=== PATIENT | female | born 1960 | race Caucasian/White ===

== ENCOUNTER → 2016-07-18 | Outpatient (REF) | payer OTHER ==
[~2016-07-18] MED LIST: /ESOM40CA PO; COUMADIN PO; METOPROLOL TARTRATE; METOPROLOL TARTRATE PO; PRAV20TA2 OR; TOPI50TA PO; TRAM50TA2 OR; ULTR300T OR; ULTR300T PO
[2016-07-18 13:04] LABS: VITAMIN B12 LEVEL 297 PG/ML (247-911)
== END ==
LOC: M LAB REF 12:03
DX: M25.512 Pain in left shoulder (principal); R41.3 Other amnesia

== ENCOUNTER 2017-08-07 15:36 | Emergency (ER) | payer OTHER ==
[2017-08-07] MEDS: ASPIRIN 81 MG CHEW TABLET PO (16:12)
[2017-08-07 16:28] LABS: BASO # 0.1 10^3/uL (0.0-0.2); BASO % 1.3 % (0.0-1.0); EOS # 0.2 10^3/uL (0.0-0.50); EOS % 2.9 % (0.0-3.0); HEMATOCRIT 40.6 % (36.0-47.0); HEMOGLOBIN 13.5 g/dl (12.0-16.0); IMMATURE GRANULOCYTE % 0.3 % (0-3.0); LYMPH % 31.2 % (24.0-44.0); MEAN CORPUSCULAR HEMOGLOBIN 30.4 pg (27.0-33.0); MEAN CORPUSCULAR HGB CONC 33.3 g/dl (32.0-36.5); MEAN CORPUSCULAR VOLUME 91.4 fl (80.0-96.0); MONO # 0.6 10^3/uL (0.0-0.8); MONO % 9.4 % (0.0-5.0); NEUTROPHILS # 3.4 10^3/uL (1.8-7.7); NEUTROPHILS % 54.9 % (36.0-66.0); PLATELET COUNT, AUTOMATED 274 10^3/uL (150-450); RED BLOOD COUNT 4.44 10^6/uL (4.00-5.40); RED CELL DISTRIBUTION WIDTH 12.6 % (11.5-14.5); WHITE BLOOD COUNT 6.3 10^3/uL (4.0-10.0)
[2017-08-07 16:49] LABS: ALBUMIN 3.9 GM/DL (3.2-5.2); ALBUMIN/GLOBULIN RATIO 1.22 (1.00-1.93); ALKALINE PHOSPHATASE 78 U/L (45-117); ALT/SGPT 17 U/L (12-78); ANION GAP 9 MEQ/L (8-16); AST/SGOT 16 U/L (7-37); BILIRUBIN,DIRECT 0.1 MG/DL (0.0-0.2); BILIRUBIN,TOTAL 0.5 MG/DL (0.2-1.0); BLOOD UREA NITROGEN 22 MG/DL (7-18); CALCIUM LEVEL 8.6 MG/DL (8.5-10.1); CARBON DIOXIDE LEVEL 26 MEQ/L (21-32); CHLORIDE LEVEL 105 MEQ/L (98-107); CPK CREATINE PHOSPHOKINASE 113 U/L (26-192); CREATININE FOR GFR 1.31 MG/DL (0.55-1.30); GLOMERULAR FILTRATION RATE 44.6 (>51); GLUCOSE, FASTING 104 MG/DL (70-100); LIPASE 129 U/L (73-393); MB/CK RELATIVE INDEX 0.88 (< OR =4); SODIUM LEVEL 140 MEQ/L (136-145); TOTAL PROTEIN 7.1 GM/DL (6.4-8.2); TROPONIN I < 0.02 NG/ML (< 0.10)
[2017-08-07 17:23] LABS: D-DIMER QUANT < 270.0 ng/ml (<500)
[2017-08-07 19:31] LABS: CPK CREATINE PHOSPHOKINASE 105 U/L (26-192); TROPONIN I < 0.02 NG/ML (< 0.10)
[2017-08-07 19:44] LABS: MB/CK RELATIVE INDEX 0.95 (< OR =4)
[2017-08-07] MEDS: predniSONE 20 MG TAB PO (20:55)
== END 2017-08-07 21:01 | disposition home or self-care (01) ==
LOC: M ED 15:36
DX: R07.9 Chest pain, unspecified (principal); I10 Essential (primary) hypertension; B15.9 Hepatitis A without hepatic coma; Z86.711 Personal history of pulmonary embolism; Z79.899 Other long term (current) drug therapy; Z79.01 Long term (current) use of anticoagulants; Z79.891 Long term (current) use of opiate analgesic; Z88.2 Allergy status to sulfonamides
CPT/HCPCS: 71045

== ENCOUNTER → 2018-07-09 | Outpatient (CLI) | payer OTHER ==
[~2018-07-09] MED LIST changes: +GABA-845 PO; +PRED20TA PO
[2018-07-09 15:55] LABS: INR 2.33
== END ==
LOC: M LAB 14:43
PROVIDERS: ATTEND Internal Medicine Hematology & Oncology
DX: I26.99 Other pulmonary embolism without acute cor pulmonale (principal); D50.9 Iron deficiency anemia, unspecified

== ENCOUNTER → 2018-07-23 | Outpatient (CLI) | payer OTHER ==
[2018-07-23 13:40] LABS: INR 1.58; PROTHROMBIN TIME 19.2 SECONDS (12.1-14.4)
== END ==
LOC: M LAB 13:05
PROVIDERS: ATTEND Internal Medicine Hematology & Oncology
DX: I26.99 Other pulmonary embolism without acute cor pulmonale (principal); D50.9 Iron deficiency anemia, unspecified; Z79.01 Long term (current) use of anticoagulants

== ENCOUNTER 2018-10-31 09:43 | Emergency (ER) | payer OTHER ==
[~2018-10-31] VITALS: Ht 175.3 cm; Wt 95.9 kg
[~2018-10-31 09:43] MED LIST changes: -/ESOM40CA PO; +NEXI1CAP3 PO
[2018-10-31] MEDS ORDERED: NS 1,000 ML IV ONE (10:45)
[2018-10-31] MEDS ORDERED: ONDANSETRON 4MG/2ML VIAL (J2405) IV ONE (10:45)
[2018-10-31 11:10] LABS: BASO % 0.6 % (0.0-1.0); EOS # 0.1 10^3/uL (0.0-0.50); EOS % 2.3 % (0.0-3.0); HEMATOCRIT 43.6 % (36.0-47.0); HEMOGLOBIN 14.2 g/dl (12.0-15.5); LYMPH # 1.5 10^3/uL (1.5-4.5); LYMPH % 28.7 % (24.0-44.0); MEAN CORPUSCULAR HEMOGLOBIN 30.6 pg (27.0-33.0); MEAN CORPUSCULAR HGB CONC 32.6 g/dl (32.0-36.5); MONO # 0.6 10^3/uL (0.0-0.8); MONO % 11.9 % (0.0-5.0); NEUTROPHILS # 2.9 10^3/uL (1.8-7.7); NEUTROPHILS % 56.1 % (36.0-66.0); PLATELET COUNT, AUTOMATED 260 10^3/uL (150-450); RED BLOOD COUNT 4.64 10^6/uL (4.00-5.40); WHITE BLOOD COUNT 5.2 10^3/uL (4.0-10.0)
[2018-10-31 11:19] LABS: INR 1.85; PROTHROMBIN TIME 21.7 SECONDS (12.1-14.4)
[2018-10-31 11:20] LABS: PARTIAL THROMBOPLASTIN TIME 36.5 SECONDS (25.4-37.6)
[2018-10-31 11:44] LABS: ALBUMIN 3.5 GM/DL (3.2-5.2); BILIRUBIN,DIRECT 0.1 MG/DL (0.0-0.2); BILIRUBIN,TOTAL 0.6 MG/DL (0.2-1.0); CALCIUM LEVEL 8.5 MG/DL (8.5-10.1); CREATININE FOR GFR 1.05 MG/DL (0.55-1.30); GLOMERULAR FILTRATION RATE 57.1 (>51); POTASSIUM SERUM 3.7 MEQ/L (3.5-5.1); TOTAL PROTEIN 7.3 GM/DL (6.4-8.2)
[2018-10-31] MEDS ORDERED: ISOVUE-370 76% 100ML VIAL (Q9967) As Ordered ONE (11:47)
--- NOTE | 2018-10-31 12:15 | REP ---
Clinical: Abdominal pain. Technique: Axial contrast enhanced images from the lung bases to the pubic symphysis using 100 ml Isovue 370 intravenous contrast material with coronal and sagittal re-formations. Comparison: 07/18/2010. Findings: Lung bases are clear. Visualized heart and pericardium normal. Fatty infiltration to the liver noted without focal hepatic lesion. Spleen, pancreas, gallbladder, bilateral adrenal glands and left kidney are normal. The patient is status post right nephrectomy. The enteric system is without obstruction or acute inflammatory process. Normal terminal ileum and appendix identified in the right lower quadrant. Scattered colonic diverticula noted without acute diverticulitis. Pelvis demonstrates normal bladder and age-appropriate uterus/adnexa. No pelvic fluid or ascites. No free air. No significant adenopathy. Atherosclerotic changes to the aorta without aneurysm or dissection. Musculoskeletal structures intact. Impression: Evidence of prior right nephrectomy. No acute abdominopelvic pathology appreciated. Scattered colonic diverticula without acute diverticulitis. No ascites, focal inflammatory stranding, or adenopathy. Electronically Signed by Speedy Melgoza MD 10/31/2018 12:06 P
[2018-10-31] MEDS ORDERED: ONDA4TAB6 PO (12:16)
[2018-10-31] MEDS ORDERED: CIPR-249 PO (12:16)
[2018-10-31 12:42] VITALS: BP 141/82
== END 2018-10-31 12:56 | disposition home or self-care (01) ==
LOC: M ED 09:43
DX: N30.90 Cystitis, unspecified without hematuria (principal); E86.0 Dehydration; K76.0 Fatty (change of) liver, not elsewhere classified; R19.7 Diarrhea, unspecified; R00.2 Palpitations; I10 Essential (primary) hypertension; I25.2 Old myocardial infarction; G43.909 Migraine, unspecified, not intractable, without status migrainosus; G54.0 Brachial plexus disorders; F32.9 Major depressive disorder, single episode, unspecified; Z88.2 Allergy status to sulfonamides; Z79.899 Other long term (current) drug therapy; Z79.01 Long term (current) use of anticoagulants
CPT/HCPCS: 74177; 80048; 80076; 81001; 85025; 85610; 85730; 87086; 96374; 99284; J2405; Q9967

== ENCOUNTER → 2018-12-20 | Outpatient (CLI) | payer OTHER ==
[~2018-12-20] MED LIST changes: +CIPR-249 PO; +ONDA4TAB6 PO
[2018-12-20 12:46] LABS: INR 2.28; PROTHROMBIN TIME 24.9 SECONDS (11.8-14.0)
== END ==
LOC: M LAB 12:04
PROVIDERS: ATTEND Internal Medicine Hematology & Oncology
DX: Z79.01 Long term (current) use of anticoagulants (principal)

== ENCOUNTER 2019-04-16 13:34 | Emergency (ER) | payer OTHER ==
[~2019-04-16] VITALS: Ht 175.3 cm; Wt 90.9 kg
--- NOTE | 2019-04-16 14:29 | REP ---
Duplex extremity venous ultrasound: Left lower extremity. History: Left knee pain. History of DVTs. Findings: The deep veins are anechoic and fully compressible from the groin to the popliteal fossa in the left lower extremity. Color flow imaging is homogeneous. Spectral Doppler interrogation demonstrates intact respiratory variation in flow and normal manual augmentation of flow. There is no evidence of deep vein thrombosis. There is a 5.4 x 2.8 x 2.5 cm hypoechoic area in the posteromedial popliteal soft tissues on the left consistent with a Barrientos's cyst containing viscus and/or proteinaceous content. Impression: 5.4 cm presumed Barrientos's cyst in the left posteromedial popliteal soft tissues. Otherwise negative left lower extremity duplex venous ultrasound. No evidence of deep vein thrombosis. Electronically Signed by Anton Hernandez MD 04/16/2019 02:20 P
[2019-04-16] MEDS ORDERED: OXYC1TAB23 PO (15:29)
[2019-04-16] MEDS ORDERED: PRED20TA PO (16:01)
[2019-04-16 16:13] VITALS: BP 157/94
== END 2019-04-16 16:17 | disposition home or self-care (01) ==
LOC: M ED 13:34
DX: M71.22 Synovial cyst of popliteal space [Baker], left knee (principal); G43.909 Migraine, unspecified, not intractable, without status migrainosus; I10 Essential (primary) hypertension; I25.2 Old myocardial infarction; F32.9 Major depressive disorder, single episode, unspecified; Z86.711 Personal history of pulmonary embolism; Z88.2 Allergy status to sulfonamides; Z79.01 Long term (current) use of anticoagulants; Z79.899 Other long term (current) drug therapy

== ENCOUNTER → 2019-04-21 | Outpatient (REF) | payer OTHER ==
[~2019-04-21] MED LIST changes: +ESOM1CAP5 PO; +GABA-1171 PO; +OXYC1TAB23 PO; +PERC5TAB12 PO; +WARF-23 PO; +WARF4TAB52 PO; +[UNRECOGNIZED DRUG - CODE] PO
[2019-04-21 15:51] LABS: BASO % 0.2 % (0.0-1.0); EOS % 0.2 % (0.0-3.0); HEMATOCRIT 43.5 % (36.0-47.0); HEMOGLOBIN 13.7 g/dl (12.0-15.5); LYMPH # 2.5 10^3/uL (1.5-5.0); LYMPH % 23.1 % (24.0-44.0); MEAN CORPUSCULAR HEMOGLOBIN 29.8 pg (27.0-33.0); MEAN CORPUSCULAR HGB CONC 31.5 g/dl (32.0-36.5); MEAN CORPUSCULAR VOLUME 94.8 fl (80.0-96.0); MONO # 1.1 10^3/uL (0.0-0.8); MONO % 9.8 % (0.0-5.0); NEUTROPHILS # 7.2 10^3/uL (1.5-8.5); NEUTROPHILS % 66.3 % (36.0-66.0); PLATELET COUNT, AUTOMATED 365 10^3/uL (150-450); RED BLOOD COUNT 4.59 10^6/uL (4.00-5.40); WHITE BLOOD COUNT 10.8 10^3/uL (4.0-10.0)
[2019-04-21 16:04] LABS: INR 3.49; PROTHROMBIN TIME 35.1 SECONDS (11.8-14.0)
[2019-04-21 18:30] LABS: ERYTHROCYTE SEDIMENTATION RATE 41 mm/hr (0-30)
== END ==
LOC: M LABDRAW1 11:48
PROVIDERS: ATTEND Orthopaedic Surgery
DX: M25.562 Pain in left knee (principal)

== ENCOUNTER 2019-04-22 21:08 | Inpatient (IN) | payer OTHER ==
[~2019-04-22] VITALS: Ht 175.3 cm; Wt 90.0 kg
[~2019-04-22 21:08] MED LIST changes: -ESOM1CAP5 PO; -GABA-1171 PO; -PERC5TAB12 PO; -WARF-23 PO; -WARF4TAB52 PO; -[UNRECOGNIZED DRUG - CODE] PO
[2019-04-22] MEDS ORDERED: ONDANSETRON 4MG/2ML VIAL (J2405) IV ONE (22:30)
[2019-04-22] MEDS ORDERED: LORazepam 2 MG/ML VIAL (J2060) IV ONE (22:30)
[2019-04-22] MEDS: MORPHINE 4 MG/ML 1ML VIAL/SYRINGE (J2270) IV PRN ×2 (22:40→23:33)
[2019-04-23] MEDS ORDERED: PERC5TAB12 PO (01:49)
[2019-04-23] MEDS ORDERED: WARF-23 PO (01:49)
[2019-04-23] MEDS ORDERED: ESOM1CAP5 PO (01:49)
[2019-04-23] MEDS ORDERED: WARF4TAB52 PO (01:49)
[2019-04-23] MEDS ORDERED: [UNRECOGNIZED DRUG - CODE] PO (01:49)
[2019-04-23] MEDS ORDERED: GABA-1171 PO (01:49)
--- NOTE | 2019-04-23 02:41 | HPEPDOC ---
[facility] Medical History & Physical Date of Admission Apr 23, 2019 Date of Service: Apr 23, 2019 Attending Physician: FRANCESCA RIVERS MD History and Physical CHIEF COMPLAINT: Barrientos's cyst and supratherapeutic INR HISTORY OF PRESENT ILLNESS: Maria A Tay is a 58-year-old female with history of questionable hypercoagulopathy who presents with 2 weeks left posterior knee pain and known Bakers cyst. The patient is on chronic Coumadin for history of pulmonary embolism and is status post multiple IVC filters and removals. She first presented to the ER on 04/16/2019 for this pain where of vascular ultrasound was performed and a 5.4 cm presumed Barrientos's cyst was found. She was given prednisone and an amara wrap and told to follow-up with orthopedic surgery in the outpatient setting. Today, she reported to the orthopedic surgeon's office for drainage of her Barrientos's cyst but this was unable to be performed due to supratherapeutic INR at 3.49. She has been holding her Coumadin for the past 2 days. She is in 9 out of 10 pain in her left knee and leg at this time. She reports the pain from her Barrientos's cyst first occurred almost 2 weeks ago and has been worsening ever since. The patient has requested admission overnight for pain control as she is unable to ambulate at home. REVIEW OF SYSTEMS: CONSTITUTIONAL: No recent fevers or chills HEENT: denies vision changes, no sinus problems, denies any trouble swallowing CARDIOVASCULAR: no palpitations RESPIRATORY: Denies any shortness of breath GENITOURINARY: No dysuria MUSCULOSKELETAL: Reports pain behind her left knee radiating down to her feet. GASTROINTESTINAL: Denies abdominal pain, no nausea/vomiting/diarrhea SKIN: No new rashes or lesions NEUROLOGICAL: No loss of sensation PSYCHIATRIC: Reports normal mood, no delusions or hallucinations ENDOCRINE: No hot/cold intolerance HEMATOLOGIC/LYMPHATIC: No easy bruising, no lumps/bumps ALLERGIC/IMMUNOLOGIC: No sinus symptoms PAST MEDICAL HISTORY: 1. History of postoperative pulmonary embolism, currently on Coumadin 2. History of obstructing nephrolithiasis requiring stent placement 3. History of Takotsubo's Syndrome 4. Migraines. 5. Crandall's esophagus 6. Hypercoagulable syndrome? 7. History of GI bleed 8. History of large abdominal wall hematoma, postoperative PAST SURGICAL HISTORY: 1. Right nephrectomy 2. Tonsillectomy 3. D&C 4. Tubal ligation 5. Endometrial ablation 6. IVC filter insertion and removal 2 7. Left oophorectomy and lysis of adhesions SOCIAL HISTORY: Denies smoking, occasional alcohol. Denies any other illicit drugs FAMILY HISTORY: Strong family history of VTE ALLERGIES: Please see below. HOME MEDICATIONS: Please see below. PHYSICAL EXAMINATION: VITAL SIGNS: Please see below. GENERAL APPEARANCE: Laying in bed, appears stated age, very sedated, acutely in pain, but cooperative HEENT: EOMI, PERRLA, neck is supple with no thyromegaly or lymphadenopathy RESPIRATORY: Lungs are clear to auscultation bilaterally with no adventitious breath sounds appreciated CARDIOVASCULAR: no JVD, RRR,no murmurs/rubs/gallops ABDOMEN: Soft, nontender to palpation in all four quadrants, no masses/organomegaly EXTREMITIES: A 4-5 cm cyst can be palpated on the left posterior knee. There is pain to deep palpation down her left leg including her calf and anterior rodríguez. There is a healed scar on her left ankle. There is no clubbing, cyanosis or edema NEUROLOGICAL: No obvious focal deficits PSYCHIATRIC: Patient is anxious and tearful Skin: No rashes or ulcers. LN: No significant cervical or inguinal lymphadenopathy LABORATORY DATA: See below. IMAGING: Vascular US from 04/16/19 Impression: 5.4 cm presumed Barrientos's cyst in the left posteromedial popliteal soft tissues. Otherwise negative left lower extremity duplex venous ultrasound. No evidence of deep vein thrombosis. MICROBIOLOGY: Please see below. ASSESSMENT: This is a 58-year-old female with history of pulmonary embolism on chronic Coumadin, who presents with Barrientos's cyst of left knee, also found to hav e supratherapeutic INR, which precludes her from drainage at this time. She will be admitted for pain control. PLAN: 1. Supratherapeutic INR: -Patient's INR found to be 3.49 on lab draw 04/21/2019 -Will recheck INR in a.m. -Continue holding Coumadin -Will give one time dose 5mg Vitamin K -Will get records from rotary operator Dr. Agosto in [place] regarding Coumadin use. 2. Acute pain secondary to Barrientos's cyst -Morphine 3 mg every 3 hours when necessary ordered -Will continue home gabapentin -Zofran when necessary for nausea 3. Barrientos's cyst: -Consider orthopedic surgery consult in a.m. 4. Hypertension -Patient's blood pressure 135/75 -Likely secondary to pain. If it does not improve, we'll treat with amlodipine 5. GERD secondary to Crandall's esophagus: -Continue home omeprazole DISPO: Will likely stay less than 2 midnight's stay. The day time team may consider consulting Ortho to aspirate the cyst if her INR has normalized vs out pt f/u Vital Signs Vital Signs Date Time Temp Pulse Resp B/P (MAP) Pulse Ox O2 Delivery O2 Flow Rate FiO2 04/23/19 01:05 72 20 135/75 (95) 98 Room Air 04/22/19 21:31 97.1 Home Medications Scheduled Esomeprazole Magnesium (Esomeprazole Magnesium) 40 Mg Capsule.dr, 40 MG PO DAILY Gabapentin (Gabapentin) 100 Mg Capsule, 100 MG PO QHS Tramadol HCl (Tramadol HCl ER) 300 Mg Tab.er.24h, 300 MG PO DAILY Warfarin Sodium (Warfarin Sodium) 1 Mg Tablet, 1 MG PO DAILY TAKES WITH 5MG FOR 6 MG TOTAL Warfarin Sodium (Warfarin Sodium) 5 Mg Tablet, 5 MG PO DAILY TAKES WITH 1MG FOR 6MG TOTAL Scheduled PRN Oxycodone HCl/Acetaminophen (Percocet 5-325 mg Tablet) 1 Each Tablet, 1 TAB PO Q4H PRN for PAIN Allergies Coded Allergies: Sulfa (Sulfonamide Antibiotics) (Verified Allergy, Intermediate, rash, hives " very sick" , 10/31/18) A-FIB/CHADSVASC A-FIB History Current/History of A-Fib/PAF?: No GME ATTESTATION GME ATTESTATION My faculty preceptor for this patient encounter was physically present during the encounter and was fully available. All aspects of the patient interview, examination, medical decision making process, and medical care plan development were reviewed and approved by the faculty preceptor. The faculty preceptor is aware and concurs with the plan as stated in the body of this note and will attest to such by his/her cosignature. ATTENDING NOTE I examined , discussed the case with and agree with the plan as documented above. ADAN FARIA MD Apr 23, 2019 02:41 FRANCESCA RIVERS MD Apr 23, 2019 07:05
[2019-04-23] MEDS: MORPHINE 4 MG/ML 1ML VIAL/SYRINGE (J2270) IV PRN ×3 (03:59→09:47)
[2019-04-23 04:15] VITALS: BP 155/99
[2019-04-23] MEDS ORDERED: PHYTONADIONE 5 MG TAB PO ONE (04:15)
[2019-04-23] MEDS: ONDANSETRON 4MG/2ML VIAL (J2405) IV PRN ×2 (04:44→14:01)
[2019-04-23 05:10] LABS: INR 3.49; PROTHROMBIN TIME 35.1 SECONDS (11.8-14.0)
[2019-04-23 05:32] LABS: ALBUMIN 3.1 GM/DL (3.2-5.2); BILIRUBIN,TOTAL 0.5 MG/DL (0.2-1.0); CALCIUM LEVEL 8.9 MG/DL (8.5-10.1); CREATININE FOR GFR 1.1 MG/DL (0.55-1.30); GLOMERULAR FILTRATION RATE 54.1 (>51); POTASSIUM SERUM 4.6 MEQ/L (3.5-5.1); TOTAL PROTEIN 7.1 GM/DL (6.4-8.2)
[2019-04-23 06:00] VITALS: BP 138/85
[2019-04-23] MEDS: NORCO, ANEXSIA 5/325MG TABLET (HYDROcodone/ACETAMINOPHEN) PO PRN ×2 (08:17→22:18)
[2019-04-23] MEDS: OMEPRAZOLE 20 MG CAP PO SCH (08:17)
[2019-04-23] MEDS ORDERED: HYDROMORPHONE HCL 0.5 MG/ 0.5 ML SYRINGE (J1170 PER 1) IV PRN (13:00)
[2019-04-23 13:30] VITALS: BP 164/98
[2019-04-23] MEDS ORDERED: HYDROMORPHONE HCL 0.5 MG/ 0.5 ML SYRINGE (J1170 PER 1) IV ONE (14:00)
[2019-04-23] MEDS ORDERED: ACETAMINOPHEN *IV* 1,000 MG in IV 1 EA IV SCH (15:30)
[2019-04-23] MEDS: HYDROMORPHONE HCL 0.5 MG/ 0.5 ML SYRINGE (J1170 PER 1) IV PRN ×7 (15:39→23:35)
[2019-04-23] MEDS: ACETAMINOPHEN 500 MG TAB PO SCH (16:44)
[2019-04-23] MEDS: MIRALAX *UNIT DOSE* 17GM PACKET PO PRN (16:53)
[2019-04-23] MEDS ORDERED: KETOROLAC 30 MG/ML VIAL (J1885) IV ONE (19:00)
[2019-04-23] MEDS ORDERED: GABAPENTIN 100 MG CAP PO SCH (21:00)
[2019-04-23 22:00] VITALS: BP 113/72
[2019-04-24] MEDS ORDERED: traMADol ER 100MG TABLET (ULTRAM ER) PO ONE (00:15)
[2019-04-24] MEDS: ACETAMINOPHEN 500 MG TAB PO SCH ×4 (00:29→17:12)
[2019-04-24] MEDS: HYDROMORPHONE HCL 0.5 MG/ 0.5 ML SYRINGE (J1170 PER 1) IV PRN ×2 (05:58→13:11)
[2019-04-24 06:16] VITALS: BP 110/72
[2019-04-24 06:17] LABS: HEMOGLOBIN 12.2 g/dl (12.0-15.5); MEAN CORPUSCULAR HEMOGLOBIN 29.8 pg (27.0-33.0); MEAN CORPUSCULAR HGB CONC 31.3 g/dl (32.0-36.5); MEAN CORPUSCULAR VOLUME 95.4 fl (80.0-96.0); PLATELET COUNT, AUTOMATED 283 10^3/uL (150-450); RED BLOOD COUNT 4.09 10^6/uL (4.00-5.40); WHITE BLOOD COUNT 7.6 10^3/uL (4.0-10.0)
[2019-04-24 06:25] LABS: INR 1.76; PROTHROMBIN TIME 20.3 SECONDS (11.8-14.0)
[2019-04-24 06:34] LABS: ALBUMIN 2.8 GM/DL (3.2-5.2); BILIRUBIN,TOTAL 1.2 MG/DL (0.2-1.0); CALCIUM LEVEL 8.9 MG/DL (8.5-10.1); CREATININE FOR GFR 1.28 MG/DL (0.55-1.30); GLOMERULAR FILTRATION RATE 45.4 (>51); MAGNESIUM LEVEL 2.1 MG/DL (1.8-2.4); PHOSPHORUS LEVEL 3.4 MG/DL (2.5-4.9); POTASSIUM SERUM 4.2 MEQ/L (3.5-5.1); TOTAL PROTEIN 6.9 GM/DL (6.4-8.2)
[2019-04-24] MEDS ORDERED: traMADol ER 100MG TABLET (ULTRAM ER) PO SCH (09:00)
[2019-04-24] MEDS ORDERED: LIDOCAINE 1% MDV 20ML VIAL SC ONE (09:00)
[2019-04-24] MEDS: OMEPRAZOLE 20 MG CAP PO SCH (09:19)
[2019-04-24] MEDS: MIRALAX *UNIT DOSE* 17GM PACKET PO PRN ×2 (09:27→22:05)
--- NOTE | 2019-04-24 09:50 | IPN ---
DATE: 04/24/2019 The patient complains of 15/10 pain at the left popliteal fossa, unable to sleep last night despite tramadol 300 mg daily, gabapentin 100 nightly, Dilaudid 0.5 every 1 hour as needed for severe pain, and [place] 1 tablet every 4 hours. VITAL SIGNS: Temperature 97.7, pulse 77, respiratory rate 13, blood pressure 110/72, 91% on room air. Generally awake, alert, oriented times three, answering questions appropriately. No respiratory distress. Speaks in full sentences. Lungs are clear to auscultation. No wheezing, rales or rhonchi. Heart: S1, S2, sinus rhythm. Abdomen soft, nontender, nondistended. Positive bowel sounds. Extremities: A 4 cm cyst in the left popliteal fossa. No cyanosis, clubbing or any pitting edema. LABORATORY DATA: INR 1.76. White count 7.6, hemoglobin 12, hematocrit 39, platelet count 283. Sodium 135, potassium 4.2 chloride 98, bicarbonate 31, BUN 26, creatinine 1.2, and glucose of 107, total bilirubin 1.2. Venous ultrasound: 5.4 cm presumed Barrientos's cyst left posteromedial popliteal soft tissue. Negative left lower extremity venous ultrasound. No evidence of deep venous thrombosis (DVT) 04/16/2019. ASSESSMENT AND PLAN: 58-year-old female on chronic warfarin for pulmonary embolism (PE), inferior vena cava (IVC) filter removal, questionable hypercoagulability presents with pain in the left popliteal fossa found to have a 5.4 cm presumed Barrientos's cyst on 04/16/2019. Was seen at the orthopedic group for drainage of Barrientos's cyst but was supratherapeutic with INR of 3.49 and was sent to the hospital for admission. Current INR is 1.76. ACTIVE ISSUES: 1. Barrientos's cyst left popliteal fossa to be drained by Dr. Tiffanie Franco, Orthopedics Surgery. Patient's INR is currently 1.76. Holding her warfarin. 2. Elevated INR due to warfarin. She was given a one time dose of vitamin K. Warfarin is on hold. She has a account manager education, Dr. Terry, in [place], who manages her Coumadin level. 3. History of PE. IVC filter removal. On chronic warfarin. No DVT on 04/16/2019. Ultrasound of the lower extremity. Resume warfarin once aspiration has been done. 4. Reflux due to Crandall's. On Prilosec. 5. Hypertension. On Norvasc. MTDD
[2019-04-24 11:27] LABS: SOURCE, BODY FLUID LFT KNEE
[2019-04-24 11:28] LABS: SYNOVIAL FLUID COLOR RED (YELLOW)
[2019-04-24 11:32] LABS: CRYSTALS, BODY FLUID NONE SEEN (NONE SEEN); SOURCE, BODY FLUID CRYSTALS LFT KNEE
[2019-04-24] MEDS: NORCO, ANEXSIA 5/325MG TABLET (HYDROcodone/ACETAMINOPHEN) PO PRN (13:10)
[2019-04-24] MEDS ORDERED: DOCUSATE SODIUM 100 MG CAP PO ONE (14:00)
[2019-04-24] MEDS ORDERED: diphenhydrAMINE INJ 50MG/ML VIAL (J1200) IV PRN (14:30)
[2019-04-24] MEDS ORDERED: NALBUPHINE HCL 10 MG/ML AMP (J2300) IV PRN (14:30)
[2019-04-24] MEDS ORDERED: NALOXONE INJ 0.4 MG/1 ML VIAL (J2310) IV PRN (14:30)
[2019-04-24] MEDS ORDERED: ONDANSETRON 4MG/2ML VIAL (J2405) IV PRN (14:30)
[2019-04-24] MEDS ORDERED: EPIDURAL/PCA KEYS XX PRN (14:30)
--- NOTE | 2019-04-24 14:38 | IPNPDOC ---
Date Seen The patient was seen on 04/24/19. Progress Note Left Barrientos's cyst/ popliteal fossa pain s/p aspiration 04/24/19 -attempted to contact pain management clinic for assistance with pain control, but only deals with chronic pain. -pain mgt recommended continuing pt's chronic meds: tramadol 300 mg daily, increasing gabapentin up to 100 mg tid, and for acute pain, minimizing opiate use to less than 5 days with as needed morphine due to risk of tolerance, dependence, and increased sedation. VS, [facility]&O[facility] Vital Signs/I&O Vital Signs Date Time Temp Pulse Resp B/P (MAP) Pulse Ox O2 Delivery O2 Flow Rate FiO2 04/24/19 13:40 18 Room Air 04/24/19 06:16 97.7 77 110/72 (85) 91 I&O- Last 24 Hours up to 6 AM 04/24/19 06:00 Intake Total 840 ml Output Total 700 ml Balance 140 ml Laboratory Data 24H LABS Laboratory Tests 2 04/24/19 05:55: Nucleated Red Blood Cells % (auto) 0.0, Prothrombin Time 20.3H, Prothromb Time International Ratio 1.76, Anion Gap 6L, Glomerular Filtration Rate 45.4L, Calcium Level 8.9, Phosphorus Level 3.4, Magnesium Level 2.1, Total Bilirubin 1.2#H, Aspartate Amino Transf (AST/SGOT) 14, Alanine Aminotransferase (ALT/SGPT) 18, Alkaline Phosphatase 77, Total Protein 6.9, Albumin 2.8L, Albumin/Globulin Ratio 0.68L 04/24/19 11:09: Body Fluid WBC (Auto) , Body Fluid RBC (Auto) , Body Fluid Mononuclear Cells % Auto , Fluid Polymorphonuclear Cell % Auto , Body Fluid Crystals NONE SEEN, Body Fluid Crystal Source LFT KNEE, Synovial Fluid Source LFT KNEE, Synovial Fluid Color RED, Synovial Fluid Appearance CLOTTED CBC/BMP Laboratory Tests 04/24/19 05:55 Microbiology Microbiology 04/24/19 Gram Stain - Final, Resulted 04/24/19 Body Fluid Culture, Resulted Pending KAREN ACOSTA MD Apr 24, 2019 14:37
[2019-04-24 14:52] VITALS: BP 108/67
[2019-04-24] MEDS: NS 1,000 ML IV SCH (15:52)
[2019-04-24] MEDS: MORPHINE 1MG/ML IN 0.9% NACL 100ML IV BAG IV PRN (15:52)
[2019-04-24] MEDS: GABAPENTIN 100 MG CAP PO SCH ×2 (16:03→21:41)
[2019-04-24] MEDS: ENOXAPARIN 100MG/1ML SYRINGE (J1650) SC SCH (17:12)
[2019-04-24] MEDS: WARFARIN SOD 3 MG TAB PO SCH (17:12)
[2019-04-24] MEDS ORDERED: DOCUSATE SODIUM 100 MG CAP PO SCH (21:00)
[2019-04-24] MEDS: DOCUSATE SODIUM 100 MG CAP PO SCH (21:41)
[2019-04-24 22:00] VITALS: BP 110/62
[2019-04-24] MEDS: MOM 30ML SUSPENSION UDC PO PRN (22:05)
[2019-04-24] MEDS: SENOKOT S TAB PO PRN (22:05)
[2019-04-25] MEDS: ACETAMINOPHEN 500 MG TAB PO SCH ×3 (00:12→11:48)
[2019-04-25] MEDS: ENOXAPARIN 100MG/1ML SYRINGE (J1650) SC SCH ×2 (05:05→16:36)
[2019-04-25 06:29] VITALS: BP 116/60
[2019-04-25 06:55] LABS: INR 1.56; PROTHROMBIN TIME 18.4 SECONDS (11.8-14.0)
[2019-04-25] MEDS: OMEPRAZOLE 20 MG CAP PO SCH (09:40)
[2019-04-25] MEDS: DOCUSATE SODIUM 100 MG CAP PO SCH ×2 (09:40→20:26)
[2019-04-25] MEDS: GABAPENTIN 100 MG CAP PO SCH ×3 (09:40→20:26)
[2019-04-25] MEDS: traMADol ER 100MG TABLET (ULTRAM ER) PO SCH (09:41)
[2019-04-25] MEDS: NS 1,000 ML IV SCH (14:28)
[2019-04-25 16:00] VITALS: BP 138/72
[2019-04-25] MEDS: WARFARIN SOD 3 MG TAB PO SCH (16:36)
[2019-04-25] MEDS: MORPHINE 1MG/ML IN 0.9% NACL 100ML IV BAG IV PRN (16:37)
[2019-04-25] MEDS: MOM 30ML SUSPENSION UDC PO PRN (20:25)
[2019-04-25] MEDS: MIRALAX *UNIT DOSE* 17GM PACKET PO PRN (20:25)
[2019-04-25] MEDS: SENOKOT S TAB PO PRN (20:26)
[2019-04-25 22:36] VITALS: BP 110/64
[2019-04-26] VITALS (7 sets, daily range): BP systolic 113–130; BP diastolic 66–77
[2019-04-26] MEDS: ENOXAPARIN 100MG/1ML SYRINGE (J1650) SC SCH ×2 (05:01→16:20)
[2019-04-26 07:36] LABS: INR 1.6; PROTHROMBIN TIME 18.8 SECONDS (11.8-14.0)
[2019-04-26] MEDS ORDERED: MIRALAX *UNIT DOSE* 17GM PACKET PO PRN (08:00)
--- NOTE | 2019-04-26 08:14 | REP ---
Left knee series: Four views. History: Infection. Findings: Four views of the left knee show a normal fabella posterolaterally. There is distension in the suprapatellar bursa region consistent with a large joint effusion. No bony erosive changes seen. Bones joints soft tissues are otherwise unremarkable. Impression: Findings consistent with large joint effusion. No acute bony abnormality. Electronically Signed by Anton Hernandez MD 04/26/2019 08:05 A
[2019-04-26] MEDS: MORPHINE 15 MG SA TAB PO SCH (09:59)
[2019-04-26] MEDS: OMEPRAZOLE 20 MG CAP PO SCH (09:59)
[2019-04-26] MEDS: GABAPENTIN 100 MG CAP PO SCH ×2 (09:59→16:25)
[2019-04-26] MEDS: DOCUSATE SODIUM 100 MG CAP PO SCH (09:59)
[2019-04-26] MEDS: traMADol ER 100MG TABLET (ULTRAM ER) PO SCH (09:59)
--- NOTE | 2019-04-26 09:59 | IPN ---
DATE OF SERVICE: 04/25/2019 Patient complains of severe 15/10 pain at the left popliteal fossa status post drainage yesterday and aspiration. Patient was unable to sleep due to pain and decided not to move around. She only used her morphine minimally, afraid that she will have dependence on it. "I don't want to take too many things that I can get addicted to." She was encouraged to ambulate today to use her morphine to control her pain in order to increase her ambulation and prevent deconditioning. Patient also complains of constipation when she takes opioids and has been placed on Colace and as needed bowel regimen. PHYSICAL EXAM: Temperature 96.6, pulse 79, respiratory rate 20, blood pressure 116/69, 96% on room air. Generally, patient is awake, alert, oriented times three, answering questions appropriately. No confusion. No jugular venous distention (JVD). No thyromegaly. Lungs are clear to auscultation. No wheezing, rales, or rhonchi. Heart: S1, S2, sinus rhythm. Abdomen is soft, nontender, nondistended. Positive bowel sounds. Extremities: Left popliteal fossa is very tender. She is able to flex and extend, but complains of 15/10 pain. No cyanosis or clubbing. Has trace edema with varicosities. 04/24/2019 laboratory data have been reviewed. Gram stain of the joint fluid remains with no organisms seen. ASSESSMENT AND PLAN: This is a 58-year-old female with history of deep venous thrombosis (DVT) pulmonary embolus (PE) on chronic warfarin, inferior vena cava (IVC) filter with removal, questionable hypercoagulability, presented with intractable pain in the left popliteal fossa, found to have a 5.4 cm presumed Barrientos cyst on 04/16/2019, and was seen at the orthopedic group and admitted to hospitalist's service for drainage of Barrientos cyst. Her INR was elevated at 3.49. ISSUES NOW: 1. Barrientos cyst, left popliteal fossa, drained by Dr. Tiffanie Franco, with INR 1.76 at that time. She is resumed back on her Lovenox and warfarin. Awaiting culture and sensitivity results. 2. History of pulmonary embolus (PE)/deep venous thrombosis (DVT). On chronic warfarin. Currently on bridge therapy with Lovenox. 3. Reflux disease due to Crandall esophagus. On Prilosec. 4. Hypertension. On Norvasc. DISPOSITION: Since the patient is not well controlled, she is maintained on intravenous (IV) morphine, which we will probably discontinue this in the morning once we can calculate how much dosage she requires to be comfortable enough to ambulate and work with physical therapy.
[2019-04-26] MEDS: MORPHINE 30 MG TAB **MSIR PO PRN ×2 (12:24→16:25)
--- NOTE | 2019-04-26 13:00 | IPNPDOC ---
Date Seen The patient was seen on 04/26/19. Progress Note ADDENDUM TO PROGRESS NOTE: MEDICAL CLEARANCE FOR SURGERY: Pt's warfarin and lovenox have been held. She denies any chest pain, pressure, tightness, shortness of breath, palpitations, lightheadedness, or dizziness, and has no prior history of CAD, [place], or CHF. She is medically optimized to proceed to surgery for washout of left popliteal fossa morel's cyst s/p bedside drainage on 04/25/19. VS, [facility] Vital Signs/I&O Vital Signs Date Time Temp Pulse Resp B/P (MAP) Pulse Ox O2 Delivery O2 Flow Rate FiO2 04/26/19 12:24 18 04/26/19 10:00 98.3 74 128/68 (88) 96 Room Air l I&O- Last 24 Hours up to 6 AM 04/26/19 05:59 Intake Total 2090 ml Output Total 0 ml Balance 2090 ml Laboratory Data 24H LABS Laboratory Tests 2 04/26/19 06:56: Prothrombin Time 18.8H, Prothromb Time International Ratio 1.60 Microbiology Microbiology 04/24/19 Gram Stain - Final, Complete 04/24/19 Body Fluid Culture - Final, Complete Bacillus Sp., Not Anthracis KAREN ACOSTA MD Apr 26, 2019 13:00
[2019-04-26] MEDS ORDERED: GLUCAGON FOR INJ 1 MG VIAL (J1610) SC PRN (13:30)
[2019-04-26] MEDS ORDERED: DEXTROSE 50% 50 ML SYRINGE IV PRN (13:30)
[2019-04-26] MEDS ORDERED: GLUCOSE 4 GM CHEW TABLET PO PRN (13:30)
[2019-04-26] MEDS: KCL 40MEQ IN D5/0.45NS 1000ML 1,000 ML IV SCH (13:39)
--- NOTE | 2019-04-26 14:31 | IPN ---
DATE: 04/26/2019 Overnight, patient complained of severe pain at the left popliteal fossa, rating it at 15/10 even at rest, describes as very sharp, stays in that area, worse when she tries to move. No fever or chills overnight. Microbiology, grew out bacillus species, not anthracis. No organisms are seen. Majority of bacillus species have little or no pathogenic potential. Common environmental contaminant and rarely associated with disease in humans. Despite morphine drip, patient continues to have swelling and pain at the area. Her Lovenox was last given around 4 o'clock in the morning, and her warfarin has been held. She is due to proceed for a washout of the Barrientos cyst in the left popliteal fossa. Patient otherwise denies any chest pain, pressure, tightness, shortness of breath, palpitations, lightheadedness, dizziness, no history of coronary artery disease, myocardial infarction, congestive heart failure, or renal failure. Blood pressure has been stable at 120-130 systolic. PHYSICAL EXAM: Temperature 98.3, pulse 74, respiratory 16, blood pressure 128/68, 96% on room air. Generally, awake, alert, oriented to person, place, and time, answering questions appropriately. Lungs are clear to auscultation. No wheezing, rales, or rhonchi. Heart: S1, S2, sinus rhythm. Abdomen is soft, nontender, nondistended. Positive bowel sounds. Extremities: Pain in left lower extremity in the popliteal fossa status post drainage. No cyanosis or clubbing. Patient has positive edema with varicosities bilateral lower extremities. 04/24/2019 laboratory data have been reviewed. INR this morning is 1.6. Microbiology joint fluid, 04/24/2019: Bacillus species, not anthracis. Knee x-ray, 04/26/2019: Large joint effusion. No acute bony abnormality. ASSESSMENT AND PLAN: This is a 58-year-old female with history of deep venous thrombosis (DVT), pulmonary embolus (PE), inferior vena cava (IVC) filter with removal, questionable hypercoagulability on chronic warfarin, presented with intractable pain in the left popliteal fossa, found to have a 5.4 cm Barrientos cyst, 04/16/2019, was seen at the orthopedic group and referred to the emergency room (ER) for admission. Patient underwent drainage at the bedside on 04/25/2019 with body fluid showing bacillus species. Patient is preparing for washout in the operating room later this evening after 12 hours off of Lovenox. Her warfarin has been held, and current INR is 1.6. 1. Medical clearance. Patient is medically optimized to proceed to the operating room. Her Lovenox and warfarin have been held. She has no complaints of any acute ischemic symptoms. No prior history of coronary artery disease (CAD), myocardial infarction ([place]), or congestive heart failure. Her ambulation is limited by pain in the left popliteal fossa and chronic DVT and PE in the past. 2. Large joint effusion, left popliteal fossa with presumed Barrientos cyst. The patient is to go for washout in the operating room later this evening. Pain control with morphine intravenous (IV) and oral as needed. Per pain management, acute pain can be also treated with increased gabapentin 100 three times a day from her baseline 100 nightly, and continue her Ultram extended release at 300 mg daily. Patient has not exhibited any adverse effects and does not appear to have been sedated by the changes in dosage. 3. History of nephrectomy. For unknown reasons, patient had intractable bleeding in one of her kidneys and subsequently underwent nephrectomy. Avoid nonsteroidal anti-inflammatory drugs (NSAIDs), avoid Toradol, and avoid dehydration. Currently on D5 half normal saline with fingersticks every 6 hours. Awaiting the operating room (OR) for washout. 4. DVT prophylaxis held due plan to go to the operating room later this evening.
[2019-04-26] MEDS ORDERED: WARFARIN SOD 4 MG TAB PO ONE (17:00)
[2019-04-26] MEDS ORDERED: ceFAZolin 1GM INJ (J0690 PER 500MG) As Ordered ONE (20:30)
[2019-04-26] MEDS ORDERED: ceFAZolin 2 GM/D5W 50 ML IV BAG (J0690 PER 500MG) As Ordered ONE (20:44)
[2019-04-26] MEDS ORDERED: MIDAZOLAM INJ 2 MG/2 ML VIAL (J2250) As Ordered ONE (20:46)
[2019-04-26] MEDS ORDERED: PROPOFOL 200 MG/20 ML VIAL As Ordered ONE (20:46)
[2019-04-26] MEDS ORDERED: fentaNYL 100 MCG/2 ML INJECTION (J3010) As Ordered ONE ×3 (20:46→22:20)
[2019-04-26] MEDS ORDERED: LIDOCAINE 2% INJ 100 MG/5 ML SDV (FOR ANES.) As Ordered ONE (20:46)
[2019-04-26] MEDS ORDERED: dexameTHASONE 4 MG/ML 1ML VIAL (J1100) As Ordered ONE (20:46)
[2019-04-26] MEDS ORDERED: ONDANSETRON 4MG/2ML VIAL (J2405) As Ordered ONE (20:46)
[2019-04-26] MEDS ORDERED: METOCLOPRAMIDE INJ 10MG/2ML VIAL (J2765) As Ordered ONE (20:46)
[2019-04-26] MEDS ORDERED: LABETALOL HCL 100 MG/20 ML VIAL As Ordered ONE (21:19)
[2019-04-26] MEDS ORDERED: HYDROmorphone HCL 2 MG/ML 1ML VIAL (J1170) As Ordered ONE (21:21)
[2019-04-26] MEDS ORDERED: ACETAMINOPHEN 1000MG 100ML IV BTL (OFIRMEV) (J0131 PER 10MG) As Ordered ONE (21:26)
[2019-04-26] MEDS ORDERED: ROPIvacaine 0.5% 30 ML INJECTION (J2795 PER 1MG) As Ordered ONE (21:48)
[2019-04-26] MEDS: fentaNYL 100 MCG/2 ML INJECTION (J3010) IV PRN ×4 (22:20→22:35)
[2019-04-26] MEDS ORDERED: MORPHINE 10 MG/ML 1ML VIAL (J2270) As Ordered ONE (22:20)
[2019-04-26] MEDS ORDERED: LR 1,000 ML IV SCH (22:30)
[2019-04-26] MEDS ORDERED: ONDANSETRON 4MG/2ML VIAL (J2405) IV PRN (22:30)
[2019-04-26] MEDS: MORPHINE 10 MG/ML 1ML VIAL (J2270) IV PRN ×2 (22:40→22:45)
[2019-04-27] VITALS (9 sets, daily range): BP systolic 103–140; BP diastolic 66–85
[2019-04-27] MEDS: KCL 40MEQ IN D5/0.45NS 1000ML 1,000 ML IV SCH (00:01)
[2019-04-27] MEDS: GABAPENTIN 100 MG CAP PO SCH ×4 (00:01→21:16)
[2019-04-27] MEDS: DOCUSATE SODIUM 100 MG CAP PO SCH ×3 (00:01→21:17)
[2019-04-27] MEDS ORDERED: LR 1,000 ML IV SCH (01:00)
[2019-04-27] MEDS: MORPHINE 15 MG SA TAB PO SCH ×3 (01:12→21:17)
[2019-04-27] MEDS: ceFAZolin SOD 2 GM in IV 1 EA IV SCH ×3 (03:29→18:42)
[2019-04-27] MEDS: ENOXAPARIN 100MG/1ML SYRINGE (J1650) SC SCH ×2 (05:14→17:08)
[2019-04-27 07:01] LABS: HEMOGLOBIN 10.9 g/dl (12.0-15.5); MEAN CORPUSCULAR HEMOGLOBIN 29.9 pg (27.0-33.0); MEAN CORPUSCULAR HGB CONC 31.1 g/dl (32.0-36.5); MEAN CORPUSCULAR VOLUME 95.9 fl (80.0-96.0); PLATELET COUNT, AUTOMATED 287 10^3/uL (150-450); RED BLOOD COUNT 3.65 10^6/uL (4.00-5.40); WHITE BLOOD COUNT 6.9 10^3/uL (4.0-10.0)
[2019-04-27 07:11] LABS: INR 1.55; PROTHROMBIN TIME 18.3 SECONDS (11.8-14.0)
[2019-04-27 07:13] LABS: PARTIAL THROMBOPLASTIN TIME 51.9 SECONDS (25.0-38.4)
[2019-04-27] MEDS: traMADol ER 100MG TABLET (ULTRAM ER) PO SCH (08:44)
[2019-04-27] MEDS: OMEPRAZOLE 20 MG CAP PO SCH (08:44)
--- NOTE | 2019-04-27 09:35 | CR ---
DATE OF CONSULTATION: 04/26/2019 This is a 58-year-old woman who has had a couple weeks history of left knee pain and swelling. She has been followed primarily by Dr. Franco from an orthopedic standpoint and had an aspiration done, I believe, a couple of days ago. This was reportedly a hemarthrosis. There was a positive culture that came through and Dr. Weathers had asked me to proceed with the arthroscopy this evening as he had a family emergency. I spoke with the patient and obtained the history and exam. She essentially has a large effusion, has some warmth of her left knee and keeps it flexed at about 80 degrees and allows very little flexion extension beyond that. She also has had a low grade temperature of just over 100 today. She wished to go ahead with an arthroscopy. She is hoping to get some symptomatic relief. There is certainly a possibility that there is an infection in the knee as well. However, I think even decompressing this presumed hemarthrosis, irrigating it out, will likely give her some significant symptomatic relief. She understands the nature of this, the alternatives of just observation, aspiration. The risks I discussed with her including bleeding, infection, damage to nerves, vessels, persistent pain, stiffness, recurrent effusion or hemarthrosis recurrent infection. She understands that I will likely put a drain in. She has been consented here in the recovery room. I also discussed this with her . She did have an MRI scan through our office a few days ago that showed likely hemarthrosis and Barrientos's cyst. JUAN
[2019-04-27] MEDS: MORPHINE 30 MG TAB **MSIR PO PRN ×2 (11:34→16:04)
[2019-04-27] MEDS: MORPHINE 2 MG/ML 1ML VIAL (J2270) IV PRN ×2 (14:14→18:42)
--- NOTE | 2019-04-27 20:07 | IPN ---
DATE: 04/27/2019 The patient had one shot of the left popliteal fossa due to Barrientos's cyst that was drained. Findings were bloody discharge. The patient was placed on perioperative cefazolin. Previous culture grew out Bacillus, not anthracis. Afebrile overnight. No complaints of chills. Pain is improved, currently 6 out of 10 at the bedside on morphine IR as needed and morphine IV for breakthrough pain and controlled release morphine 15 mg twice a day. The patient is afraid of constipation and has not had a bowel movement, currently with a bowel regimen with as needed MiraLAX, Colace, Senokot. PHYSICAL EXAMINATION: VITAL SIGNS: Temperature 98.3, pulse 68, respiratory rate 20, blood pressure 110/68, 94% on 1 liter nasal cannula. GENERAL: Awake, alert, oriented times three. Able to speak in full sentences. LUNGS: Clear to auscultation. No wheezing, rales or rhonchi. HEART: S1, S2. Sinus rhythm. No murmurs, rubs or gallops. ABDOMEN: Soft, nontender, nondistended. Positive bowel sounds. No rebound, guarding. No hepatosplenomegaly. No abdominal bruits. EXTREMITIES: Left popliteal fossa has no fluctuance, no swelling. She has chronic varicosities and positive pitting edema of 1+ in bilateral lower extremities. No cyanosis or clubbing. LABORATORY DATA: INR 1.55, white count 6.7, hemoglobin 10, hematocrit 35, platelet count 287. Sodium 135, potassium 4.2, chloride 98, bicarbonate 31, BUN 26, creatinine 1.28, glucose of 107, total bilirubin 1.2, magnesium 2.1, AST 14, ALT 18, alkaline phosphatase 77, albumin 2.8. MICROBIOLOGY: Joint fluid from 04/24/2019 Bacillus species, not anthracis. Wound culture of the left knee on 04/26/2019 still pending. X-ray on 04/26/2019 showed large joint effusion, no acute abnormality. ASSESSMENT AND PLAN: This is a 58-year-old female with a history of questionable hypercoagulable state with history of deep vein thrombosis (DVT), pulmonary embolism, and IVC filter removal, who presented from the orthopedic group with questionable Barrientos's cyst in the popliteal fossa on the left and was sent to the hospital for admission and pain control. 1. Large joint effusion left knee, presumed Barrientos's cyst. Had drainage by Dr. Franco at the bedside on 04/24/2019 with culture being Bacillus, not anthracis. She went for a washout in the operating room on 04/26/2019, currently on perioperative cefazolin. No white count. No fever. The patient is currently on morphine IV as needed, morphine IR for pain control and morphine controlled release twice a day 15 mg. She has had a prior nephrectomy and cannot take any nonsteroidal antiinflammatory drugs (NSAIDs). 2. History of nephrectomy. No definitive diagnosis. Per the patient and the patient's , the patient had ongoing bleeding at that time, which could not be contained. Therefore, avoid NSAIDs, Toradol, ibuprofen, Naprosyn, Aleve. 3. History of hypercoagulable state, deep vein thrombosis (DVT) and pulmonary embolus. Resume back on Lovenox and warfarin today. Target INR 2 to 3. 4. Chronic pain. On gabapentin and tramadol. 5. Reflux. On Prilosec. MTDD
[2019-04-27] MEDS: ACETAMINOPHEN 650MG ER TAB (TYLENOL ARTHRITIS) PO PRN (23:09)
[2019-04-28] MEDS: MORPHINE 30 MG TAB **MSIR PO PRN ×2 (01:09→06:20)
[2019-04-28 02:00] VITALS: BP 120/69
[2019-04-28 06:00] VITALS: BP 117/71
[2019-04-28] MEDS: ENOXAPARIN 100MG/1ML SYRINGE (J1650) SC SCH (06:21)
[2019-04-28 07:40] LABS: INR 1.36; PROTHROMBIN TIME 16.5 SECONDS (11.8-14.0)
[2019-04-28 07:41] LABS: PARTIAL THROMBOPLASTIN TIME 44.1 SECONDS (25.0-38.4)
[2019-04-28] MEDS: GABAPENTIN 100 MG CAP PO SCH ×3 (08:52→20:51)
[2019-04-28] MEDS: OMEPRAZOLE 20 MG CAP PO SCH (08:52)
[2019-04-28] MEDS: MORPHINE 15 MG SA TAB PO SCH (08:52)
[2019-04-28] MEDS: DOCUSATE SODIUM 100 MG CAP PO SCH ×2 (08:52→20:51)
[2019-04-28] MEDS: traMADol ER 100MG TABLET (ULTRAM ER) PO SCH (08:53)
[2019-04-28 10:00] VITALS: BP 118/72
[2019-04-28] MEDS: MORPHINE 2 MG/ML 1ML VIAL (J2270) IV PRN ×4 (10:12→21:52)
[2019-04-28] MEDS ORDERED: NALOXONE INJ 0.4 MG/1 ML VIAL (J2310) IV PRN (12:15)
--- NOTE | 2019-04-28 12:44 | RO ---
DATE OF PROCEDURE: 04/26/2019 PREOPERATIVE DIAGNOSES: Left knee hemarthrosis, possible infection, significant pain. POSTOPERATIVE DIAGNOSES: Left knee hemarthrosis, possible infection, significant pain. PROCEDURE: Left knee operative arthroscopy, debridement, evacuation hemarthrosis, cultures. Using a total of 6 liters of antibiotic irrigation. SURGEON: Reji Mello MD HEALTH SERVICES DIRECTOR: ANESTHESIA: General. ESTIMATED BLOOD LOSS (EBL): 50. COMPLICATIONS: None. INDICATIONS: A 58-year-old woman who has had persistent knee effusion on the left that turned out to be a likely hemarthrosis based on aspiration and MRI scan. She also had a positive culture. Due to significant knee pain, warmth, some redness, positive culture, we recommended arthroscopic debridement. She wished to go ahead with this. She understood the nature of this, the risks of bleeding, infection, damage to nerves, vessels, persistent pain, blood clots, persistent infection, need for further surgery, among others. among other procedure. DESCRIPTION OF PROCEDURE: The patient was taken to the operating room, placed in supine position after general anesthesia was induced. Left lower extremity was prepped and draped. The tourniquet was inflated after time-out was performed. I then created inferomedial and inferolateral portals per routine. Identified the patellofemoral joint. She did have significant hemarthrosis, which I suctioned out as much as I could just through the trocar and then irrigated. I irrigated through both gutters, medial and lateral compartments, and patellofemoral joint using a 4.0 shaver and two 3-liter bags of antibiotic solution. There was a moderate amount of arthritic change throughout the knee. There was no evidence of meniscus tear. Once I was satisfied with the debridement and irrigation, I then removed the instrumentation, placed a15 J-Vac drain to a bulb to the superolateral aspect the knee and closed the portals using 4-0 nylon suture. I also placed a suture to keep the drain in place. Sterile dressing was applied. Tourniquet had been deflated. She was taken to the recovery room in stable condition. There were no known complications. The plan will be routine postoperative. The antibiotic selection can be done either by the hospitalist or perhaps infectious disease. Of note is that I did make an attempt to try to manually decompress the Barrientos cyst by putting pressure on it during the arthroscopy. JUAN
[2019-04-28] MEDS ORDERED: MORPHINE 15 MG SA TAB PO ONE (13:00)
[2019-04-28 14:00] VITALS: BP 139/84
[2019-04-28 14:35] LABS: HEMATOCRIT 34.3 % (36.0-47.0); HEMOGLOBIN 10.8 g/dl (12.0-15.5); MEAN CORPUSCULAR HEMOGLOBIN 30.1 pg (27.0-33.0); MEAN CORPUSCULAR HGB CONC 31.5 g/dl (32.0-36.5); MEAN CORPUSCULAR VOLUME 95.5 fl (80.0-96.0); PLATELET COUNT, AUTOMATED 317 10^3/uL (150-450); RED BLOOD COUNT 3.59 10^6/uL (4.00-5.40); WHITE BLOOD COUNT 8.6 10^3/uL (4.0-10.0)
--- NOTE | 2019-04-28 14:42 | IPN ---
DATE: 04/28/2019 The patient complains of severe pain on the popliteal fossa with bloody drainage since she has been on Lovenox. The left knee continues to appear swollen, status post washout in the operating room. Drainage by HARRIS drain overnight was 60 mL. The patient stated that the morphine immediate release 15 mg every 4 hours was insufficient, along with IV morphine for breakthrough pain, rating the pain at 11 out of 10 when it was worsened with standing up and ambulating to the bathroom. PHYSICAL EXAMINATION: VITAL SIGNS: Temperature 97.7, pulse 73, respiratory rate 18, blood pressure 118/72, 96% on room air. GENERAL: Awake, alert, oriented times three. Answering questions appropriately. No jaundice. No use of respiratory accessory muscles. NECK: No cervical lymphadenopathy or thyromegaly. LUNGS: Clear to auscultation. No wheezing, rales or rhonchi. HEART: S1, S2. Sinus rhythm. No murmurs, rubs or gallops. ABDOMEN: Soft, nontender, nondistended. Positive bowel sounds. EXTREMITIES: Positive chronic edema with bloody HARRIS drain on the left knee. LABORATORY DATA: Pending. ASSESSMENT AND PLAN: This is a 58-year-old female with a history of recurrent pulmonary embolisms, deep vein thrombosis (DVT), IVC filter placement on chronic warfarin, presented from the orthopedic group after being found to have a large effusion with questionable Barrientos's cyst, was found to have hemearthrosis, bedside drainage was Bacillus. The patient underwent washout in the operating room and now with HARRIS drain of about 70 mL over the past 48 hours. IMPRESSION: 1. Large joint effusion left knee, presumed Barrientos's cyst, appears to be hemorrhagic. The patient was drained at the bedside by Dr. Franco on 04/24/2019, cultures showing Bacillus, not anthracis. The patient underwent washout in the operating room on 04/26/2019. Has been on cefazolin. No white count or fever. Currently on IV morphine for breakthrough pain. Controlled release morphine has been increased to 30 mg twice a day and continue 15 mg immediate release morphine every 4 hours as needed for pain. The patient hs had a prior nephrectomy and cannot take any nonsteroidal antiinflammatory drugs (NSAIDs). Defer to surgery regarding the drainage management. At this time, due to ongoing blood loss via the drain, the patient's Lovenox has been temporarily held today and warfarin has not been resumed. 2. History of nephrectomy due to prior history of uncontrollable bleeding. Void nephrotoxins, NSAIDs, Toradol, ibuprofen, Naprosyn, Aleve. Renally dose all medications. 3. History of hypercoagulable state, deep vein thrombosis (DVT) and pulmonary embolus in the past, IVC filter placement with removal. THe patient's Lovenox will be held today and warfarin will not be started due to ongoing bleeding through the HARRIS drain, about 70 mL over the past 48 hours. 4. Chronic pain. On gabapentin, which has been increased to three times a day and tramadol at night. 5. Reflux. On chronic Prilosec. MTDD
[2019-04-28 15:06] LABS: CALCIUM LEVEL 8.3 MG/DL (8.5-10.1); CREATININE FOR GFR 1.04 MG/DL (0.55-1.30); GLOMERULAR FILTRATION RATE 57.7 (>51); POTASSIUM SERUM 3.9 MEQ/L (3.5-5.1)
[2019-04-28] MEDS ORDERED: WARFARIN SOD 3 MG TAB PO ONE (17:00)
[2019-04-28 18:00] VITALS: BP 136/86
[2019-04-28 20:47] VITALS: BP 140/86
[2019-04-28] MEDS: MORPHINE 30 MG SA TAB PO SCH (20:51)
[2019-04-29] MEDS: MORPHINE 2 MG/ML 1ML VIAL (J2270) IV PRN ×2 (01:00→11:20)
[2019-04-29 03:45] VITALS: BP 139/85
[2019-04-29] MEDS: ONDANSETRON 4MG/2ML VIAL (J2405) IV PRN (06:27)
[2019-04-29 06:28] VITALS: BP 133/79
[2019-04-29] MEDS: MORPHINE 30 MG TAB **MSIR PO PRN ×3 (06:28→17:12)
[2019-04-29 06:44] LABS: INR 1.15; PROTHROMBIN TIME 14.4 SECONDS (11.8-14.0)
[2019-04-29 06:45] LABS: PARTIAL THROMBOPLASTIN TIME 31.8 SECONDS (25.0-38.4)
--- NOTE | 2019-04-29 08:29 | CR ---
DATE OF CONSULTATION: 04/28/2019 Asked to consult by orthopedic surgery for evaluation of left knee hematoma with a culture positive for bacillus. HISTORY OF PRESENT ILLNESS: Maria A is a 58-year-old female with a history of deep venous thrombosis (DVT) and pulmonary embolism who developed left knee pain around April 11 when she was volunteering in the voting process. The patient felt like she had hyperextended her knee. She developed severe acute pain that continued until April 16 when the pain became intolerant and she went to the emergency room. A vascular ultrasound was done which showed a 5.4 cm Barrientos's cyst. She was given a followup at orthopedic surgery and was supposed to have the knee aspirated but she was to told her Coumadin as her INR was supratherapeutic. The patient stated her pain got much worse and she presented to the hospital on April 23 complaining of excruciating pain. She had a low grade fever. She had significant swelling of the knee. The patient was admitted for pain management and knee aspiration. The knee was aspirated on the but there was significant blood, it clot, there was no cell count that could be performed. There was no crystals in the knee and the culture had Bacillus species, a few on culture. The pain was not manageable. She was taken to the operating room by Dr. Mello on 04/26, he did a knee arthroscopy, debridement, evacuation of hemarthrosis and new cultures were sent. He used 6 liters of antibiotic irrigation. He described the operative report as having significant hemarthrosis, moderate amount of arthritic changes throughout the knee, no evidence of meniscus tear and he left the drain in place. She received three doses of cefazolin perioperatively. The patient had a T-max of 100.1, but that was postoperatively. Currently she complains of some nausea and constipation from narcotics. PAST MEDICAL HISTORY: Is significant for pulmonary embolism on Coumadin, deep venous thromboses (DVTs), history of obstructing nephrolithiasis, takotsubo syndrome, migraines, Crandall's esophagus, hypercoagulable syndrome, history of gastrointestinal (GI) bleeding, large abdominal wall hematoma after she had a cardiac catheterization, IVC filter that was removed and replaced. PAST SURGICAL HISTORY: Right nephrectomy for what she describes as a clot in her kidney, tonsillectomy, D C, tubal ligation, and endometrial ligation, ablation, IVC filter times two, left oophorectomy, and lysis of adhesions. SOCIAL HISTORY: She is to [place]. She has an adopted daughter, Arelis who is in her first year in college. She denies smoking. She drinks socially. No drug use. FAMILY HISTORY: Venous thromboembolism. ALLERGIES: SULFA causes hives. MEDICATIONS: - Nexium 40 mg daily - gabapentin 100 mg by mouth at bedtime - tramadol 300 mg by mouth daily - warfarin 5 mg alternating with 6 mg every other day - Morphine - MS Contin 30 mg by mouth twice a day since hospitalization - MiraLax one packet daily as needed - Colace 100 mg by mouth twice a day LABORATORY DATA: White count on admission was 10.8, today was 8.6, hemoglobin 10.8, hematocrit 34.3, platelets 317. Sodium 140, potassium 3.9, chloride 102, bicarb 31. BUN 19, creatinine 1.04, glucose 98, calcium 8.3, CRP on 04/21 was 2.42 and ESR was 41. Joint fluid culture on 04/24 had Bacillus species. 04/26 culture is pending. IMAGING STUDIES: Knee x-ray done on 04/26 showed a large joint effusion with no acute bony abnormality and vascular ultrasound done 04/16 showed a 5.4 cm presumed Barrientos's cyst in the left posterior femoral popliteal soft tissue, otherwise negative. PHYSICAL EXAMINATION: Temperature is 99.1, pulse 78, respirations 16, blood pressure 136/86, O2 sat 97% on room air. Heart: Normal S1-S2. No murmurs. Lungs are clear. No wheezes, rales, or rhonchi. Abdomen: Obese, soft, nontender. Back: Mild lumbosacral tenderness. No CVA tenderness. Extremities: Trace edema on the left side. The right side no clubbing, cyanosis or edema. She has bilateral varicose veins. Left knee is Rocco wrapped with a drain that has significant amount of bloody fluid. IMPRESSION: This is a 58-year-old female who had a left knee hemarthrosis probably complicated by a Barrientos cyst admitted for severe pain, uncontrollable. Culture was positive for bacillus which is usually a contaminant, it was very few. She had a slight elevation in inflammatory markers, CRP and sed rate along with a low grade fever but these could all be from the hemarthrosis. PLAN: At this point I discussed the case with Dr. Mello who agrees this was probably just a hemarthrosis in the knee and not an infection. We will keep off IV antibiotics. We will continue to monitor results of culture and depending on operative cultures we will decide on further management. JUAN
[2019-04-29] MEDS: OMEPRAZOLE 20 MG CAP PO SCH (08:35)
[2019-04-29] MEDS: traMADol ER 100MG TABLET (ULTRAM ER) PO SCH (08:35)
[2019-04-29] MEDS: DOCUSATE SODIUM 100 MG CAP PO SCH (08:35)
[2019-04-29] MEDS: MORPHINE 30 MG SA TAB PO SCH ×2 (08:36→20:17)
[2019-04-29] MEDS: GABAPENTIN 100 MG CAP PO SCH ×3 (08:36→20:16)
[2019-04-29 10:00] VITALS: BP 131/79
[2019-04-29 14:00] VITALS: BP 109/66
[2019-04-29 18:00] VITALS: BP 110/67
[2019-04-29] MEDS ORDERED: MIRALAX *UNIT DOSE* 17GM PACKET PO ONE (18:15)
--- NOTE | 2019-04-29 18:34 | IPNPDOC ---
Text Note Date of Service The patient was seen on 04/29/19. NOTE SUBJECTIVE: Pain is a little better controlled today with oral morphine however PT is still restricted by pain, complains of constipation. Drain will be removed by ortho today. PHYSICAL EXAMINATION: VITAL SIGNS: as below GENERAL: Awake, alert, oriented times three. Answering questions appropriately. No jaundice. No use of respiratory accessory muscles. NECK: No cervical lymphadenopathy or thyromegaly. LUNGS: Clear to auscultation. No wheezing, rales or rhonchi. HEART: S1, S2. Sinus rhythm. No murmurs, rubs or gallops. ABDOMEN: Soft, nontender, nondistended. Positive bowel sounds. EXTREMITIES: Positive chronic edema with bloody HARRIS drain on the left knee. LABORATORY DATA: reviewed ASSESSMENT AND PLAN: This is a 58-year-old female with a history of recurrent pulmonary embolisms, deep vein thrombosis (DVT), IVC filter placement on chronic warfarin, obstructing nephrolithiasis requiring stent placement, History of Takotsubo's Syndrome, Migraines, Crandall's esophagus Hypercoagulable syndrome on coumadin presented from the orthopedic group after being found to have a large effusion with questionable Barrientos's cyst, but was found to have hemarthrosis, bedside drainage done and culture grew Bacillus which was a skin contaminant. However continued to be in severe pain so underwent arthroscopy , debridement and evacuation of hemarthrosis and washout in the operating room and with HARRIS drain placement Hemarthrosis of the left knee s/p arthroscopy , debridement and evacuation of hemarthrosis wash out with an tibiotic solution and HARRIS drain placement. drain removed 04/29 will restart on lovenox and coumadin. pain control with morphine po Bakers cyst of the left knee this was tried to be reduced during arthroscopy. History of nephrectomy due to prior history of uncontrollable bleeding. Void nephrotoxins, NSAIDs, Toradol, ibuprofen, Naprosyn, Aleve. Renally dose all medications. History of hypercoagulable state, deep vein thrombosis (DVT) and pulmonary embolus in the past, IVC filter placement with removal and replacement. will restart anticoagulation Chronic pain. On gabapentin, which has been increased to three times a day and tramadol at night. Reflux. On chronic Prilosec. VS,Fishbone, I+O VS, Fishbone, I+O Vital Signs Date Time Temp Pulse Resp B/P (MAP) Pulse Ox O2 Delivery O2 Flow Rate FiO2 04/29/19 17:12 80 16 99 Room Air 04/29/19 14:00 99.2 109/66 (80) 04/28/19 06:00 1.0 I&O- Last 24 Hours up to 6 AM 04/29/19 05:59 Intake Total 1570 ml Output Total 40 ml Balance 1530 ml RENÉ LATHAM MD Apr 29, 2019 18:34
[2019-04-29] MEDS: WARFARIN SOD 3 MG TAB PO SCH (18:39)
[2019-04-29 20:15] VITALS: BP 111/67
[2019-04-29] MEDS: SENOKOT S TAB PO SCH (20:15)
[2019-04-29] MEDS: MOM 30ML SUSPENSION UDC PO PRN (20:15)
[2019-04-29] MEDS: ENOXAPARIN 150 MG/ML SYR (J1650) SC SCH (20:15)
--- NOTE | 2019-04-29 20:18 | IPN ---
DATE: 04/29/2019 The patient was seen and examined this morning. She is still having a fair amount of pain, but better. She has been afebrile. no signs of DVT today. No calf tenderness. Moving ankles well. She had had sequentials and thromboembolism deterrent (MARCELLE) stockings ordered by myself postoperatively on Sunday and they were again reordered by Samira, but as of this morning still did not have them on for some reason. We brought this to the charge nurse's attention on [place]. I also recommended that the drain be removed as it had been 2-1/2 days since the surgery and was no longer putting out significant drainage. I also recommended that she be started back on her Lovenox as she is at high risk of deep vein thrombosis (DVT) and pulmonary embolism (PE). I discussed this with Samira Gonsales this morning, and she was conveying that to the hospitalist. I then got a call about an hour ago from the hospitalist working [facility] wondering if it would be okay to restart the anticoagulation which I strongly suggested that the hospitalist do. I am quite concerned about the risk of pulmonary embolus in this patient, and I have conveyed this several times. She agreed that she was going to start the Lovenox. The Coumadin was started last night, but she is not therapeutic. She is also going to continue with the Coumadin dosing. I think the risk of PE far outweighs the risk of recurrent hemarthrosis. MTDD
[2019-04-30 02:00] VITALS: BP 108/67
[2019-04-30] MEDS: ACETAMINOPHEN 650MG ER TAB (TYLENOL ARTHRITIS) PO PRN ×2 (04:56→14:36)
[2019-04-30] MEDS: MORPHINE 2 MG/ML 1ML VIAL (J2270) IV PRN ×5 (05:41→23:33)
[2019-04-30 06:00] VITALS: BP 107/66
[2019-04-30 07:06] LABS: INR 1.23; PROTHROMBIN TIME 15.2 SECONDS (11.8-14.0)
[2019-04-30 07:07] LABS: PARTIAL THROMBOPLASTIN TIME 38.2 SECONDS (25.0-38.4)
[2019-04-30 07:44] LABS: BASO % 0.5 % (0.0-1.0); EOS # 0.1 10^3/uL (0.0-0.5); EOS % 0.9 % (0.0-3.0); HEMATOCRIT 33.6 % (36.0-47.0); HEMOGLOBIN 10.6 g/dl (12.0-15.5); LYMPH # 1.3 10^3/uL (1.5-5.0); LYMPH % 15.6 % (24.0-44.0); MEAN CORPUSCULAR HEMOGLOBIN 29.9 pg (27.0-33.0); MEAN CORPUSCULAR HGB CONC 31.5 g/dl (32.0-36.5); MEAN CORPUSCULAR VOLUME 94.6 fl (80.0-96.0); MONO # 1.1 10^3/uL (0.0-0.8); MONO % 13.4 % (0.0-5.0); NEUTROPHILS # 5.8 10^3/uL (1.5-8.5); NEUTROPHILS % 68.7 % (36.0-66.0); PLATELET COUNT, AUTOMATED 342 10^3/uL (150-450); RED BLOOD COUNT 3.55 10^6/uL (4.00-5.40); WHITE BLOOD COUNT 8.5 10^3/uL (4.0-10.0)
[2019-04-30 07:48] LABS: CALCIUM LEVEL 8.5 MG/DL (8.5-10.1); CREATININE FOR GFR 1.07 MG/DL (0.55-1.30); GLOMERULAR FILTRATION RATE 55.9 (>51); POTASSIUM SERUM 4.2 MEQ/L (3.5-5.1)
[2019-04-30] MEDS: GABAPENTIN 100 MG CAP PO SCH ×3 (08:05→20:13)
[2019-04-30] MEDS: MORPHINE 30 MG SA TAB PO SCH (08:06)
[2019-04-30] MEDS: traMADol ER 100MG TABLET (ULTRAM ER) PO SCH (08:06)
[2019-04-30] MEDS: MOM 30ML SUSPENSION UDC PO PRN ×2 (08:43→20:13)
[2019-04-30] MEDS: MIRALAX *UNIT DOSE* 17GM PACKET PO SCH (08:43)
[2019-04-30] MEDS: OMEPRAZOLE 20 MG CAP PO SCH (08:44)
[2019-04-30] MEDS: SENOKOT S TAB PO SCH ×2 (08:44→20:13)
[2019-04-30 09:39] VITALS: BP 92/62
--- NOTE | 2019-04-30 12:00 | IPNPDOC ---
Text Note Date of Service The patient was seen on 04/30/19. NOTE SUBJECTIVE: Pain is a better controlled today after the removal of the drain yesterday. Complains of constipation. agreable to go down ont eh morphine. Says the morphine makes her legs jump and has bad dreams during sleep. PHYSICAL EXAMINATION: VITAL SIGNS: as below GENERAL: Awake, alert, oriented times three. Answering questions appropriately. No jaundice. No use of respiratory accessory muscles. NECK: No cervical lymphadenopathy or thyromegaly. LUNGS: Clear to auscultation. No wheezing, rales or rhonchi. HEART: S1, S2. Sinus rhythm. No murmurs, rubs or gallops. ABDOMEN: Soft, nontender, nondistended. Positive bowel sounds. EXTREMITIES: Positive chronic edema , left knee in dressing. LABORATORY DATA: reviewed ASSESSMENT AND PLAN: This is a 58-year-old female with a history of recurrent pulmonary embolisms, deep vein thrombosis (DVT), IVC filter placement on chronic warfarin, obstructing nephrolithiasis requiring stent placement, History of Takotsubo's Syndrome, Migraines, Crandall's esophagus Hypercoagulable syndrome on coumadin presented from the orthopedic group after being found to have a large effusion with questionable Barrientos's cyst, but was found to have hemarthrosis, bedside drainage done and culture grew Bacillus which was a skin contaminant. However continued to be in severe pain so underwent arthroscopy , debridement and evacuation of hemarthrosis and washout in the operating room and with HARRIS drain placement Hemarthrosis of the left knee s/p arthroscopy , debridement and evacuation of hemarthrosis wash out with anti biotic solution and HARRIS drain placement. drain removed 04/29 restarted on lovenox and coumadin. pain control with morphine po will reduce MS contin dose. will keep the MSIR in place. continue tramadol Bakers cyst of the left knee this was tried to be reduced during arthroscopy. History of nephrectomy due to prior history of uncontrollable bleeding. Void nephrotoxins, NSAIDs, Toradol, ibuprofen, Naprosyn, Aleve. Renally dose all medications. History of hypercoagulable state, deep vein thrombosis (DVT) and pulmonary embolus in the past, IVC filter placement with removal and replacement. will restart anticoagulation Chronic pain. controlled On gabapentin and tramadol at home which we continued here. Reflux. On chronic Prilosec. Dispo: Pending PT clearance and ortho clearance. VS,Fishbone, I+O VS, Fishbone, I+O Laboratory Tests 04/30/19 06:26 Vital Signs Date Time Temp Pulse Resp B/P (MAP) Pulse Ox O2 Delivery O2 Flow Rate FiO2 04/30/19 09:39 98.7 75 18 92/62 (72) 95 Room Air 04/28/19 06:00 1.0 I&O- Last 24 Hours up to 6 AM 04/30/19 06:00 Intake Total 1780 ml Output Total 0 ml Balance 1780 ml RENÉ LATHAM MD Apr 30, 2019 12:00
[2019-04-30 13:49] VITALS: BP 110/65
[2019-04-30] MEDS: WARFARIN SOD 3 MG TAB PO SCH (16:51)
[2019-04-30 18:00] VITALS: BP 100/57
[2019-04-30] MEDS: ENOXAPARIN 150 MG/ML SYR (J1650) SC SCH (20:13)
[2019-04-30] MEDS ORDERED: MORPHINE 15 MG SA TAB PO SCH (21:00)
[2019-04-30 22:32] VITALS: BP 126/66
[2019-05-01] MEDS: MORPHINE 2 MG/ML 1ML VIAL (J2270) IV PRN ×2 (01:15→09:46)
[2019-05-01] MEDS: MORPHINE 30 MG TAB **MSIR PO PRN ×3 (04:07→16:13)
[2019-05-01 06:12] VITALS: BP 123/67
[2019-05-01] MEDS ORDERED: MAGNESIUM CITRATE 300 ML BTL PO ONE (08:00)
[2019-05-01] MEDS ORDERED: PERCOCET 5MG/325MG TAB PO PRN (08:00)
[2019-05-01] MEDS: MIRALAX *UNIT DOSE* 17GM PACKET PO SCH (09:36)
[2019-05-01] MEDS: OMEPRAZOLE 20 MG CAP PO SCH (09:36)
[2019-05-01] MEDS: SENOKOT S TAB PO SCH ×2 (09:36→19:56)
[2019-05-01] MEDS: GABAPENTIN 100 MG CAP PO SCH ×3 (09:37→19:56)
[2019-05-01] MEDS: PERCOCET 5MG/325MG TAB PO PRN (09:37)
[2019-05-01] MEDS: traMADol ER 100MG TABLET (ULTRAM ER) PO SCH (09:46)
[2019-05-01 10:04] VITALS: BP 122/69
--- NOTE | 2019-05-01 11:58 | IPNPDOC ---
Text Note Date of Service The patient was seen on 05/01/19. NOTE SUBJECTIVE: Did not have a good night . says every time she would fall asleep her legs would start jumping and that caused severe pain and spasm on the left leg and woke her up . So she needed a dose of IR morphine. So this morning she is sleepy , groggy and also has some nausea. Complains of constipation no bowel movement for 4 to 5 days. Says if she lays still she does not have pain. PHYSICAL EXAMINATION: VITAL SIGNS: as below GENERAL: Awake, alert, oriented times three. Answering questions appropriately. No jaundice. No use of respiratory accessory muscles. NECK: No cervical lymphadenopathy or thyromegaly. LUNGS: Clear to auscultation. No wheezing, rales or rhonchi. HEART: S1, S2. Sinus rhythm. No murmurs, rubs or gallops. ABDOMEN: Soft, nontender, nondistended. Positive bowel sounds. EXTREMITIES: Positive chronic edema , left knee in dressing. LABORATORY DATA: reviewed ASSESSMENT AND PLAN: This is a 58-year-old female with a history of recurrent pulmonary embolisms, deep vein thrombosis (DVT), IVC filter placement on chronic warfarin, obstructing nephrolithiasis requiring stent placement, History of Takotsubo's Syndrome, Migraines, Crandall's esophagus Hypercoagulable syndrome on coumadin presented from the orthopedic group after being found to have a large effusion with questionable Barrientos's cyst, but was found to have hemarthrosis, bedside drainage done and culture grew Bacillus which was a skin contaminant. However continued to be in severe pain so underwent arthroscopy , debridement and evacuation of hemarthrosis and washout in the operating room and with HARRIS drain placement Hemarthrosis of the left knee s/p arthroscopy , debridement and evacuation of hemarthrosis wash out with antibiotic solution and HARRIS drain placement. drain removed 04/29 restarted on lovenox and coumadin. continue tramadol and gabapentin. will change morphine to percocet. Constipation increased bowel regimen meds. Bakers cyst of the left knee this was tried to be reduced during arthroscopy. History of nephrectomy due to prior history of uncontrollable bleeding. Void nephrotoxins, NSAIDs, Toradol, ibuprofen, Naprosyn, Aleve. Renally dose all medications. History of hypercoagulable state, deep vein thrombosis (DVT) and pulmonary embolus in the past, IVC filter placement with removal and replacement. will restart anticoagulation Chronic pain. controlled On gabapentin and tramadol at home which we continued here. Reflux. On chronic Prilosec. Dispo: Pending PT clearance and ortho clearance. VS,Fishbone, I+O VS, Fishbone, I+O Vital Signs Date Time Temp Pulse Resp B/P (MAP) Pulse Ox O2 Delivery O2 Flow Rate FiO2 05/01/19 10:07 17 Room Air 05/01/19 06:12 97.8 86 123/67 (85) 96 04/28/19 06:00 1.0 I&O- Last 24 Hours up to 6 AM 05/01/19 06:00 Intake Total 1620 ml Output Total 200 ml Balance 1420 ml RENÉ LATHAM MD May 01, 2019 11:58
[2019-05-01 13:39] VITALS: BP 101/62
[2019-05-01] MEDS: WARFARIN SOD 3 MG TAB PO SCH (16:13)
[2019-05-01] MEDS: ONDANSETRON 4MG/2ML VIAL (J2405) IV PRN (19:56)
[2019-05-01] MEDS: ENOXAPARIN 150 MG/ML SYR (J1650) SC SCH (19:56)
[2019-05-01 21:08] VITALS: BP 124/63
[2019-05-01] MEDS: rOPINIRole 0.25 MG TAB(REQUIP) PO SCH (22:16)
[2019-05-02 06:02] LABS: BASO % 0.3 % (0.0-1.0); EOS # 0.1 10^3/uL (0.0-0.5); EOS % 1.9 % (0.0-3.0); HEMATOCRIT 32.2 % (36.0-47.0); HEMOGLOBIN 10.1 g/dl (12.0-15.5); LYMPH # 1.2 10^3/uL (1.5-5.0); MEAN CORPUSCULAR HEMOGLOBIN 30.2 pg (27.0-33.0); MEAN CORPUSCULAR HGB CONC 31.4 g/dl (32.0-36.5); MEAN CORPUSCULAR VOLUME 96.4 fl (80.0-96.0); MONO % 13.7 % (0.0-5.0); NEUTROPHILS % 67.2 % (36.0-66.0); PLATELET COUNT, AUTOMATED 366 10^3/uL (150-450); RED BLOOD COUNT 3.34 10^6/uL (4.00-5.40); WHITE BLOOD COUNT 7.5 10^3/uL (4.0-10.0)
[2019-05-02 06:17] LABS: INR 1.54; PROTHROMBIN TIME 18.2 SECONDS (11.8-14.0)
[2019-05-02 06:21] LABS: PARTIAL THROMBOPLASTIN TIME 50.1 SECONDS (25.0-38.4)
[2019-05-02] MEDS: MORPHINE 30 MG TAB **MSIR PO PRN (06:21)
[2019-05-02 06:33] VITALS: BP 102/56
[2019-05-02] MEDS: ACETAMINOPHEN 650MG ER TAB (TYLENOL ARTHRITIS) PO PRN (07:00)
[2019-05-02] MEDS: MIRALAX *UNIT DOSE* 17GM PACKET PO SCH (10:11)
[2019-05-02] MEDS: SENOKOT S TAB PO SCH ×2 (10:12→20:08)
[2019-05-02] MEDS: traMADol ER 100MG TABLET (ULTRAM ER) PO SCH (10:12)
[2019-05-02] MEDS: GABAPENTIN 100 MG CAP PO SCH ×3 (10:12→20:08)
[2019-05-02] MEDS: OMEPRAZOLE 20 MG CAP PO SCH (10:12)
--- NOTE | 2019-05-02 11:16 | IPNPDOC ---
Text Note Date of Service The patient was seen on 05/02/19. NOTE SUBJECTIVE:Says she had a better night after she got the requip as her legs stopped jumping so she could get some sleep. This am she had a big bowel movement so is feeling better. pain is controlled it she is not moving and still very severe on moving, walking bearing weight. PHYSICAL EXAMINATION: VITAL SIGNS: as below GENERAL: Awake, alert, oriented times three. Answering questions appropriately. No jaundice. No use of respiratory accessory muscles. NECK: No cervical lymphadenopathy or thyromegaly. LUNGS: Clear to auscultation. No wheezing, rales or rhonchi. HEART: S1, S2. Sinus rhythm. No murmurs, rubs or gallops. ABDOMEN: Soft, nontender, nondistended. Positive bowel sounds. EXTREMITIES: Positive chronic edema , left knee in dressing. LABORATORY DATA: reviewed ASSESSMENT AND PLAN: This is a 58-year-old female with a history of recurrent pulmonary embolisms, deep vein thrombosis (DVT), IVC filter placement on chronic warfarin, obstructing nephrolithiasis requiring stent placement, History of Takotsubo's Syndrome, Migraines, Crandall's esophagus Hypercoagulable syndrome on coumadin presented from the orthopedic group after being found to have a large effusion with questionable Barrientos's cyst, but was found to have hemarthrosis, bedside drainage done and culture grew Bacillus which was a skin contaminant. However continued to be in severe pain so underwent arthroscopy , debridement and evacuation of hemarthrosis and washout in the operating room and with HARRIS drain placement Hemarthrosis of the left knee s/p arthroscopy , debridement and evacuation of hemarthrosis wash out with antibiotic solution and HARRIS drain placement. drain removed 04/29 restarted on lovenox and coumadin. continue tramadol and gabapentin. will change morphine to percocet. Constipation increased bowel regimen meds. Bakers cyst of the left knee this was tried to be reduced during arthroscopy. History of nephrectomy due to prior history of uncontrollable bleeding. Void nephrotoxins, NSAIDs, Toradol, ibuprofen, Naprosyn, Aleve. Renally dose all medications. History of hypercoagulable state, deep vein thrombosis (DVT) and pulmonary embolus in the past, IVC filter placement with removal and replacement. will restart anticoagulation Chronic pain. controlled On gabapentin and tramadol at home which we continued here. Reflux. On chronic Prilosec. Dispo: Pending PT clearance VS,Fishbone, I+O VS, Fishbone, I+O Laboratory Tests 05/02/19 05:44 Vital Signs Date Time Temp Pulse Resp B/P (MAP) Pulse Ox O2 Delivery O2 Flow Rate FiO2 05/02/19 06:51 14 05/02/19 06:33 96.6 72 102/56 (71) 96 Room Air 04/28/19 06:00 1.0 I&O- Last 24 Hours up to 6 AM 05/02/19 05:59 Intake Total 1700 ml Output Total 200 ml Balance 1500 ml RENÉ LATHAM MD May 02, 2019 11:16
[2019-05-02] MEDS: PERCOCET 5MG/325MG TAB PO PRN ×3 (12:26→23:26)
[2019-05-02 13:28] VITALS: BP 101/63
[2019-05-02] MEDS: WARFARIN SOD 3 MG TAB PO SCH (16:59)
[2019-05-02 20:00] VITALS: BP 107/62
[2019-05-02] MEDS: rOPINIRole 0.25 MG TAB(REQUIP) PO SCH (20:08)
[2019-05-02] MEDS: ENOXAPARIN 150 MG/ML SYR (J1650) SC SCH (20:08)
[2019-05-03] MEDS: PERCOCET 5MG/325MG TAB PO PRN ×2 (05:29→13:13)
[2019-05-03 06:00] VITALS: BP 109/66
--- NOTE | 2019-05-03 08:03 | CR ---
DATE OF CONSULTATION: 04/24/2019 CHIEF COMPLAINT: Left knee pain. HISTORY OF PRESENT ILLNESS: Maria A Tay is a 58-year-old female who I had previously seen in the office for severe knee pain due to the elevated INR. The patient has a complicated medical history and has been on Coumadin for multiple blood clots. She has had pain and swelling in her knee and was seen in the emergency room where an ultrasound was performed and there is evidence of a Barrientos's cyst, but negative for a blood clot. I had ordered labs and MRI of her knee when I saw her in the office. At this time, MRI of the knee was suggestive of a large hemarthrosis into the left knee. Her white count was 10.8, CRP was 2.42 and ESR was 41. Plan had been made for a knee aspiration however, patient's knee was very elevated up to even the 4s and so we were waiting for her INR to come down slightly to basically do a therapeutic knee aspiration. However, she had continued difficulties and was eventually admitted to the hospital. PHYSICAL EXAMINATION: GENERAL: Well appearing, alert and oriented. No acute distress. PULMONARY: Regular. Normal breathing. CARDIOVASCULAR: Regular dorsalis pedis (DP) pulse in the left thigh. MUSCULOSKELETAL: In the left lower extremity there is significant swelling and a large effusion over the patient's knee. She is able to fully extend and flex to approximately 80 or 90 degrees. She is neurovascularly intact distally. VITAL SIGNS: Stable and she is afebrile. IMPRESSION: Left knee hemarthrosis. PLAN: Patient's labs are slightly elevated and her INR is down to a more reasonable level today so we will attempt aspiration for both therapeutic and diagnostic reasons. After informed consent was obtained, I was able to aspirate approximately 60 mL from the patient's knee. It did appear to be a hemarthrosis with mainly sanguineous fluid that was not cloudy. Patient tolerated this without difficulty. We will send this for cell count, culture and gram stain and patient will be followed by the orthopedic team in the hospital.
[2019-05-03] MEDS: MIRALAX *UNIT DOSE* 17GM PACKET PO SCH (09:00)
[2019-05-03] MEDS: traMADol ER 100MG TABLET (ULTRAM ER) PO SCH (09:41)
[2019-05-03] MEDS: GABAPENTIN 100 MG CAP PO SCH ×3 (09:41→20:15)
[2019-05-03] MEDS: SENOKOT S TAB PO SCH ×2 (09:41→20:17)
[2019-05-03] MEDS: OMEPRAZOLE 20 MG CAP PO SCH (09:41)
--- NOTE | 2019-05-03 10:02 | IPNPDOC ---
Text Note Date of Service The patient was seen on 05/03/19. NOTE SUBJECTIVE: Pain remains the major issue. requring morphine and percocet. SHe did have 2 good bowel movements yesterday. She is doing well after adding requip says able to get better sleep as now the legs are not jumping as much. will increase gaapentin. PT continues to work with her daily. PHYSICAL EXAMINATION: VITAL SIGNS: as below GENERAL: Awake, alert, oriented times three. Answering questions appropriately. No jaundice. No use of respiratory accessory muscles. NECK: No cervical lymphadenopathy or thyromegaly. LUNGS: Clear to auscultation. No wheezing, rales or rhonchi. HEART: S1, S2. Sinus rhythm. No murmurs, rubs or gallops. ABDOMEN: Soft, nontender, nondistended. Positive bowel sounds. EXTREMITIES: Positive chronic edema , left knee in dressing. LABORATORY DATA: reviewed ASSESSMENT AND PLAN: This is a 58-year-old female with a history of recurrent pulmonary embolisms, deep vein thrombosis (DVT), IVC filter placement on chronic warfarin, obstructing nephrolithiasis requiring stent placement, History of Takotsubo's Syndrome, Migraines, Crandall's esophagus Hypercoagulable syndrome on coumadin presented from the orthopedic group after being found to have a large effusion with questionable Barrientos's cyst, but was found to have hemarthrosis, bedside drainage done and culture grew Bacillus which was a skin contaminant. However continued to be in severe pain so underwent arthroscopy , debridement and evacuation of hemarthrosis and washout in the operating room and with HARRIS drain placement Hemarthrosis of the left knee s/p arthroscopy , debridement and evacuation of hemarthrosis wash out with antibiotic solution and HARRIS drain placement. drain removed 04/29 restarted on lovenox and coumadin. continue tramadol and gabapentin, percocet and po morphine. IVR at 1.5. will recheck tomorrow. Constipation increased bowel regimen meds. Bakers cyst of the left knee this was tried to be reduced during arthroscopy. History of nephrectomy due to prior history of uncontrollable bleeding. Void nephrotoxins, NSAIDs, Toradol, ibuprofen, Naprosyn, Aleve. Renally dose all medications. History of hypercoagulable state, deep vein thrombosis (DVT) and pulmonary embolus in the past, IVC filter placement with removal and replacement. will restart anticoagulation Chronic pain. controlled On gabapentin and tramadol at home which we continued here. Reflux. On chronic Prilosec. Dispo: Pending PT clearance VS,Fishbone, I+O VS, Fishbone, I+O Vital Signs Date Time Temp Pulse Resp B/P (MAP) Pulse Ox O2 Delivery O2 Flow Rate FiO2 05/03/19 06:00 97.3 70 18 109/66 (80) 95 Room Air 04/28/19 06:00 1.0 I&O- Last 24 Hours up to 6 AM 05/03/19 05:59 Intake Total 1680 ml Output Total 425 ml Balance 1255 ml RENÉ LATHAM MD May 03, 2019 10:02
[2019-05-03 14:00] VITALS: BP 104/66
[2019-05-03] MEDS: WARFARIN SOD 3 MG TAB PO SCH (16:35)
[2019-05-03] MEDS: MORPHINE 30 MG TAB **MSIR PO PRN (18:47)
[2019-05-03] MEDS: rOPINIRole 0.25 MG TAB(REQUIP) PO SCH (20:15)
[2019-05-03] MEDS: ENOXAPARIN 150 MG/ML SYR (J1650) SC SCH (20:15)
[2019-05-03 20:25] VITALS: BP 104/69
[2019-05-04] MEDS: PERCOCET 5MG/325MG TAB PO PRN ×4 (00:21→20:17)
[2019-05-04 05:45] VITALS: BP 119/70
[2019-05-04 06:01] LABS: BASO % 0.5 % (0.0-1.0); EOS # 0.1 10^3/uL (0.0-0.5); EOS % 2.1 % (0.0-3.0); HEMATOCRIT 31.6 % (36.0-47.0); LYMPH # 1.5 10^3/uL (1.5-5.0); LYMPH % 23.6 % (24.0-44.0); MEAN CORPUSCULAR HEMOGLOBIN 30.1 pg (27.0-33.0); MEAN CORPUSCULAR HGB CONC 31.6 g/dl (32.0-36.5); MEAN CORPUSCULAR VOLUME 95.2 fl (80.0-96.0); MONO # 0.7 10^3/uL (0.0-0.8); NEUTROPHILS # 3.9 10^3/uL (1.5-8.5); NEUTROPHILS % 62.5 % (36.0-66.0); PLATELET COUNT, AUTOMATED 456 10^3/uL (150-450); RED BLOOD COUNT 3.32 10^6/uL (4.00-5.40); WHITE BLOOD COUNT 6.2 10^3/uL (4.0-10.0)
[2019-05-04 06:11] LABS: INR 1.91; PROTHROMBIN TIME 21.6 SECONDS (11.8-14.0)
[2019-05-04 06:13] LABS: PARTIAL THROMBOPLASTIN TIME 64.9 SECONDS (25.0-38.4)
[2019-05-04 06:21] LABS: CALCIUM LEVEL 8.7 MG/DL (8.5-10.1); CREATININE FOR GFR 1.05 MG/DL (0.55-1.30); GLOMERULAR FILTRATION RATE 57.1 (>51); POTASSIUM SERUM 4.4 MEQ/L (3.5-5.1)
[2019-05-04 06:53] LABS: C REACTIVE PROTEIN QUANTITATIV 16.2 MG/DL (0.00-0.30)
[2019-05-04] MEDS: SENOKOT S TAB PO SCH ×2 (08:19→20:17)
[2019-05-04] MEDS: MIRALAX *UNIT DOSE* 17GM PACKET PO SCH (08:19)
[2019-05-04] MEDS: GABAPENTIN 100 MG CAP PO SCH ×3 (08:20→20:16)
[2019-05-04] MEDS: OMEPRAZOLE 20 MG CAP PO SCH (08:20)
[2019-05-04] MEDS: traMADol ER 100MG TABLET (ULTRAM ER) PO SCH (08:20)
[2019-05-04] MEDS: MORPHINE 30 MG TAB **MSIR PO PRN ×2 (08:21→17:04)
[2019-05-04] MEDS: ONDANSETRON 4 MG TAB (S0181) PO PRN (09:52)
--- NOTE | 2019-05-04 10:59 | IPNPDOC ---
Text Note Date of Service The patient was seen on 05/04/19. NOTE SUBJECTIVE: Pain remains the major issue. requiring morphine and percocet. She wants to go home. Has not been cleared by PT. WIll ask for ARU screening. Says if she does not go to rehab she would like to go home . Says her is at home and her sister lives nearby to she will be able to help her also. She can sleep downstairs has a recliner, there is bathroom as well as bedside commode. Says he will be able to manage at home. Will discuss with PT for possible DC sun or sunday if she does not go to ARU. PHYSICAL EXAMINATION: VITAL SIGNS: as below GENERAL: Awake, alert, oriented times three. Answering questions appropriately. No jaundice. No use of respiratory accessory muscles. NECK: No cervical lymphadenopathy or thyromegaly. LUNGS: Clear to auscultation. No wheezing, rales or rhonchi. HEART: S1, S2. Sinus rhythm. No murmurs, rubs or gallops. ABDOMEN: Soft, nontender, nondistended. Positive bowel sounds. EXTREMITIES: Positive chronic edema , left knee with 2 triatches in 2 areas, still warm and swollen. LABORATORY DATA: reviewed ASSESSMENT AND PLAN: This is a 58-year-old female with a history of recurrent pulmonary embolisms, deep vein thrombosis (DVT), IVC filter placement on chronic warfarin, obstructing nephrolithiasis requiring stent placement, History of Takotsubo's Syndrome, Migraines, Crandall's esophagus Hypercoagulable syndrome on coumadin presented from the orthopedic group after being found to have a large effusion with questionable Barrientos's cyst, but was found to have hemarthrosis, bedside drainage done and culture grew Bacillus which was a skin contaminant. However continued to be in severe pain so underwent arthroscopy , debridement and evacuation of hemarthrosis and washout in the operating room and with HARRIS drain placement Hemarthrosis of the left knee s/p arthroscopy , debridement and evacuation of hemarthrosis wash out with antibiotic solution and HARRIS drain placement. drain removed 04/29 restarted on lovenox and coumadin. continue tramadol and gabapentin, percocet and po morphine. InR at 1.9. will recheck tomorrow. Constipation increased bowel regimen meds. Bakers cyst of the left knee this was tried to be reduced during arthroscopy. History of nephrectomy due to prior history of uncontrollable bleeding. Void nephrotoxins, NSAIDs, Toradol, ibuprofen, Naprosyn, Aleve. Renally dose all medications. History of hypercoagulable state, deep vein thrombosis (DVT) and pulmonary embolus in the past, IVC filter placement with removal and replacement. will restart anticoagulation Chronic pain. controlled On gabapentin and tramadol at home which we continued here. Reflux. On chronic Prilosec. Dispo: Pending PT clearance VS,August, I+O VS, [place], I+O Laboratory Tests 05/04/19 05:30 Vital Signs Date Time Temp Pulse Resp B/P (MAP) Pulse Ox O2 Delivery O2 Flow Rate FiO2 05/04/19 08:51 20 Room Air 05/04/19 05:45 97.4 68 119/70 (86) 96 04/28/19 06:00 1.0 I&O- Last 24 Hours up to 6 AM 05/04/19 06:00 Intake Total 1580 ml Output Total 1325 ml Balance 255 ml RENÉ LATHAM MD May 04, 2019 09:26
[2019-05-04 14:00] VITALS: BP 109/64
[2019-05-04] MEDS: WARFARIN SOD 3 MG TAB PO SCH (17:04)
[2019-05-04] MEDS: rOPINIRole 0.25 MG TAB(REQUIP) PO SCH (20:16)
[2019-05-04] MEDS: ENOXAPARIN 150 MG/ML SYR (J1650) SC SCH (20:16)
[2019-05-04 21:30] VITALS: BP 105/64
[2019-05-05] MEDS: MORPHINE 30 MG TAB **MSIR PO PRN ×3 (01:22→23:06)
[2019-05-05 02:13] VITALS: BP 111/66
[2019-05-05 05:37] LABS: INR 2.2; PROTHROMBIN TIME 24.2 SECONDS (11.8-14.0)
[2019-05-05] MEDS: PERCOCET 5MG/325MG TAB PO PRN ×4 (06:17→23:53)
[2019-05-05 06:59] VITALS: BP 122/89
[2019-05-05] MEDS: GABAPENTIN 100 MG CAP PO SCH ×3 (09:05→20:55)
[2019-05-05] MEDS: traMADol ER 100MG TABLET (ULTRAM ER) PO SCH (09:05)
[2019-05-05] MEDS: MIRALAX *UNIT DOSE* 17GM PACKET PO SCH (09:05)
[2019-05-05] MEDS: OMEPRAZOLE 20 MG CAP PO SCH (09:05)
[2019-05-05] MEDS: SENOKOT S TAB PO SCH ×2 (09:06→20:55)
[2019-05-05] MEDS: ONDANSETRON 4 MG TAB (S0181) PO PRN (12:40)
[2019-05-05 14:24] VITALS: BP 112/63
[2019-05-05] MEDS: WARFARIN SOD 3 MG TAB PO SCH (17:40)
[2019-05-05 17:56] VITALS: BP 111/66
[2019-05-05 20:07] VITALS: BP 140/77
[2019-05-05] MEDS: rOPINIRole 0.25 MG TAB(REQUIP) PO SCH (20:55)
--- NOTE | 2019-05-05 21:40 | IPNPDOC ---
Text Note Date of Service The patient was seen on 05/05/19. NOTE SUBJECTIVE: Pain remains the major issue. requiring morphine and percocet. She wants to go home. Has not been cleared by PT. WIll ask for ARU screening. Says if she does not go to rehab she would like to go home . Says her is at home and her sister lives nearby to she will be able to help her also. She can sleep downstairs has a recliner, there is bathroom as well as bedside commode. Says she will be able to manage at home. Did 2 stairs today. PHYSICAL EXAMINATION: VITAL SIGNS: as below GENERAL: Awake, alert, oriented times three. Answering questions appropriately. No jaundice. No use of respiratory accessory muscles. NECK: No cervical lymphadenopathy or thyromegaly. LUNGS: Clear to auscultation. No wheezing, rales or rhonchi. HEART: S1, S2. Sinus rhythm. No murmurs, rubs or gallops. ABDOMEN: Soft, nontender, nondistended. Positive bowel sounds. EXTREMITIES: Positive chronic edema , left knee with 2 triatches in 2 areas, still warm and swollen. LABORATORY DATA: reviewed ASSESSMENT AND PLAN: This is a 58-year-old female with a history of recurrent pulmonary embolisms, deep vein thrombosis (DVT), IVC filter placement on chronic warfarin, obstructing nephrolithiasis requiring stent placement, History of Takotsubo's Syndrome, Migraines, Crandall's esophagus Hypercoagulable syndrome on coumadin presented from the orthopedic group after being found to have a large effusion with questionable Barrientos's cyst, but was found to have hemarthrosis, bedside drainage done and culture grew Bacillus which was a skin contaminant. However continued to be in severe pain so underwent arthroscopy , debridement and evacuation of hemarthrosis and washout in the operating room and with HARRIS drain placement Hemarthrosis of the left knee s/p arthroscopy , debridement and evacuation of hemarthrosis wash out with antibiotic solution and HARRIS drain placement. drain removed 04/29 restarted on lovenox and coumadin. continue tramadol and gabapentin, percocet and po morphine. InR at 1.9. will recheck tomorrow. Constipation increased bowel regimen meds. Bakers cyst of the left knee this was tried to be reduced during arthroscopy. History of nephrectomy due to prior history of uncontrollable bleeding. Void nephrotoxins, NSAIDs, Toradol, ibuprofen, Naprosyn, Aleve. Renally dose all medications. History of hypercoagulable state, deep vein thrombosis (DVT) and pulmonary embolus in the past, IVC filter placement with removal and replacement. will restart anticoagulation Chronic pain. controlled On gabapentin and tramadol at home which we continued here. Reflux. On chronic Prilosec. Dispo: Pending PT clearance VS,Fishbone, I+O VS, Fishbone, I+O Vital Signs Date Time Temp Pulse Resp B/P (MAP) Pulse Ox O2 Delivery O2 Flow Rate FiO2 05/05/19 06:59 99.4 76 16 122/89 (100) 96 Room Air I&O- Last 24 Hours up to 6 AM 05/05/19 05:59 Intake Total 1610 ml Output Total 250 ml Balance 1360 ml RENÉ LATHAM MD May 05, 2019 10:07
[2019-05-06 02:06] VITALS: BP 153/90
[2019-05-06] MEDS: PERCOCET 5MG/325MG TAB PO PRN ×2 (06:07→12:06)
[2019-05-06 06:09] VITALS: BP 119/73
[2019-05-06] MEDS: traMADol ER 100MG TABLET (ULTRAM ER) PO SCH (08:04)
[2019-05-06 08:12] VITALS: BP 118/74
[2019-05-06] MEDS: GABAPENTIN 100 MG CAP PO SCH (09:24)
[2019-05-06] MEDS: MIRALAX *UNIT DOSE* 17GM PACKET PO SCH (09:24)
[2019-05-06] MEDS: SENOKOT S TAB PO SCH (09:24)
[2019-05-06] MEDS: OMEPRAZOLE 20 MG CAP PO SCH (09:24)
[2019-05-06 10:00] VITALS: BP 118/77
[2019-05-06] MEDS: MORPHINE 30 MG TAB **MSIR PO PRN (10:04)
[2019-05-06] MEDS ORDERED: PEG1POW PO (11:49)
[2019-05-06] MEDS ORDERED: REQU1TAB14 PO (11:49)
[2019-05-06] MEDS ORDERED: ONDA4TAB5 PO (11:49)
[2019-05-06] MEDS ORDERED: PERC5TAB12 PO (11:49)
[2019-05-06] MEDS ORDERED: MORP15TA2 PO (11:49)
[2019-05-06] MEDS ORDERED: GABA-1171 PO (11:49)
[2019-05-06] MEDS ORDERED: SENN-52 PO (11:49)
[2019-05-06 14:00] VITALS: BP 132/78
[2019-05-06 14:08] VITALS: BP 132/78
--- NOTE | 2019-05-09 22:54 | DS.PDOC ---
Discharge Summary General Date of Admission Apr 24, 2019 at 13:53 Date of Discharge 05/06/19 Discharge Summary PROCEDURES PERFORMED DURING STAY: on 04/24 : Left Knee aspiration On 04/26: Left Knee operative arthroscopy, debridement, evacuation hemarthrosis, cultures. Wash out Using a total of 6 liters of antibiotic irrigation DISCHARGE DIAGNOSES: Hemarthrosis of left knee Barrientos's cyst of left knee SECONDARY DIAGNOSIS: Recurrent pulmonary embolisms, deep vein thrombosis (DVT), IVC filter placement on chronic warfarin, obstructing nephrolithiasis requiring stent placement, History of Takotsubo's Syndrome, Migraines, Crandall's esophagus Hypercoagulable syndrome COMPLICATIONS/CHIEF COMPLAINT: Bakers Cyst Of Knee; Elevated Inr. HISTORY OF PRESENT ILLNESS: See History and physical HOSPITAL COURSE: This is a 58-year-old female with a history of recurrent pulmonary embolisms, deep vein thrombosis (DVT), IVC filter placement on chronic warfarin, obstructing nephrolithiasis requiring stent placement, History of Takotsubo's Syndrome, Migraines, Crandall's esophagus Hypercoagulable syndrome on coumadin presented from the orthopedic group after being found to have a large effusion with questionable Barrientos's cyst, but was found to have hemarthrosis, bedside drainage done and culture grew Bacillus which was a skin contaminant. However continued to be in severe pain so underwent arthroscopy , debridement and evacuation of hemarthrosis and washout in the operating room and with HARRIS drain placement Hemarthrosis of the left knee cultures from knee aspiration on 04/24 grew bacillus species As per ID which is usually a contaminant, it was very few. She had a slight elevation in i nflammatory markers, CRP and sed rate along with a low grade fever which were all felt to be from hemarthrosis. She was not given any antibiotics. s/p arthroscopy , debridement and evacuation of hemarthrosis wash out with antibiotic solution and HARRIS drain placement. Cultures from OR on 04/26 were negative. drain removed 04/29 continue tramadol and gabapentin, percocet and po morphine. back on home dose of coumadin with therapeutic INR. Constipation regular bowel meds. Bakers cyst of the left knee this was tried to be reduced during arthroscopy. History of nephrectomy due to prior history of uncontrollable bleeding. avoid nephrotoxins, NSAIDs, Toradol, ibuprofen, Naprosyn, Aleve. History of hypercoagulable state, deep vein thrombosis (DVT) and pulmonary embolus in the past, IVC filter placement with removal and replacement. back on coumadin Chronic pain. controlled On gabapentin and tramadol at home which we continued here. Reflux. On chronic Prilosec. DISCHARGE MEDICATIONS: Please see below. ALLERGIES: Please see below. PHYSICAL EXAMINATION ON DISCHARGE: VITAL SIGNS: Please see below. GENERAL: Awake, alert, oriented times three. Answering questions appropriately. No jaundice. No use of respiratory accessory muscles. NECK: No cervical lymphadenopathy or thyromegaly. LUNGS: Clear to auscultation. No wheezing, rales or rhonchi. HEART: S1, S2. Sinus rhythm. No murmurs, rubs or gallops. ABDOMEN: Soft, nontender, nondistended. Positive bowel sounds. EXTREMITIES: Positive chronic edema , left knee with 2 triatches in 2 areas, still warm and swollen. LABORATORY DATA: Please see below. ACTIVITY: [As tolerated]. DIET: As tolerated DISPOSITION: Home Health Service. DISCHARGE INSTRUCTIONS: PMD in 1 week Ortho as directed. DISCHARGE CONDITION: [Stable]. TIME SPENT ON DISCHARGE: 35 minutes. Vital Signs/I&Os Vital Signs Date Time Temp Pulse Resp B/P (MAP) Pulse Ox O2 Delivery O2 Flow Rate FiO2 05/06/19 14:08 98.4 85 18 132/78 (96) 97 Room Air Laboratory Data CBC/BMP Item Value Date Time White Blood Count 6.2 10^3/uL 05/04/19529 Red Blood Count 3.32 10^6/uL L 05/04/19 05 Hemoglobin 10.0 g/dl L 05/04/19529 Hematocrit 31.6 % L 05/04/19529 Mean Corpuscular Volume 95.2 fl 05/04/19529 Mean Corpuscular Hemoglobin 30.1 pg 05/04/19529 Mean Corpuscular Hemoglobin Concent 31.6 g/dl L 05/04/19529 Red Cell Distribution Width 12.6 % 05/04/19529 Platelet Count 456 10^3/uL H 05/04/19529 Immature Granulocyte % (Auto) 0.3 % 05/04/19529 Neutrophils (%) (Auto) 62.5 % 05/04/19529 Lymphocytes (%) (Auto) 23.6 % L 11/24/19 0530 Monocytes (%) (Auto) 11.0 % H 05/04/19 0530 Eosinophils (%) (Auto) 2.1 % 05/04/19 0530 Basophils (%) (Auto) 0.5 % 05/04/19 0530 Neutrophils # (Auto) 3.9 10^3/uL 05/04/19 0530 Lymphocytes # (Auto) 1.5 10^3/uL 05/04/19 0530 Monocytes # (Auto) 0.7 10^3/uL 05/04/19 0530 Eosinophils # (Auto) 0.1 10^3/uL 05/04/19 0530 Basophils # (Auto) 0.0 10^3/uL 05/04/19 0530 Nucleated Red Blood Cells % (auto) 0.0 % 05/04/19 0530 Sodium Level 138 MEQ/L 05/04/19 0530 Potassium Level 4.4 MEQ/L 05/04/19 0530 Chloride Level 102 MEQ/L 05/04/19 0530 Carbon Dioxide Level 32 MEQ/L 05/04/19 0530 Anion Gap 4 MEQ/L L 05/04/19 0530 Blood Urea Nitrogen 16 MG/DL 05/04/19 0530 Creatinine 1.05 MG/DL 05/04/19 0530 Glomerular Filtration Rate 57.1 05/04/19 0530 Fasting Glucose 100 MG/DL 05/04/19 0530 Calcium Level 8.7 MG/DL 05/04/19 0530 C-Reactive Protein, Quantitative 16.20 MG/DL H 05/04/19 0530 Prothrombin Time 24.2 SECONDS H 05/05/19 0508 Prothromb Time International Ratio 2.20 05/05/19 0508 Activated Partial Thromboplast Time 75.0 SECONDS H 05/05/19 0508 Discharge Medications Scheduled Esomeprazole Magnesium (Esomeprazole Magnesium) 40 Mg Capsule.dr, 40 MG PO DAILY, (Reported) Gabapentin (Gabapentin) 100 Mg Capsule, 200 MG PO TID Polyethylene Glycol 3350 (Polyethylene Glycol 3350) 17 Gm Powd.pack, 1 PKT PO DAILY Ropinirole HCl (Requip) 0.25 Mg Tablet, 0.25 MG PO QHS Sennosides/Docusate Sodium (Senna Plus Tablet) 1 Each Tablet, 2 TAB PO BID Tramadol HCl (Tramadol HCl ER) 300 Mg Tab.er.24h, 300 MG PO DAILY, (Reported) Warfarin Sodium (Warfarin Sodium) 1 Mg Tablet, 1 MG PO DAILY, (Reported) TAKES WITH 5MG FOR 6 MG TOTAL Warfarin Sodium (Warfarin Sodium) 5 Mg Tablet, 5 MG PO DAILY, (Reported) TAKES WITH 1MG FOR 6MG TOTAL Scheduled PRN Morphine Sulfate (Morphine Sulfate) 15 Mg Tablet, 15 MG PO TIDP PRN for PAIN LEVEL 6-10 Ondansetron HCl (Ondansetron HCl) 4 Mg Tablet, 4 MG PO Q6HP PRN for NAUSEA OR VOMITING Oxycodone HCl/Acetaminophen (Percocet 5-325 mg Tablet) 1 Each Tablet, 1-2 TAB PO Q6H PRN for PAIN Allergies Coded Allergies: Sulfa (Sulfonamide Antibiotics) (Verified Allergy, Intermediate, rash, hives " very sick" , 10/31/18) RENÉ LATHAM MD May 09, 2019 22:54
== END 2019-05-06 15:00 | disposition home health service (06) | DRG 554 ==
LOC: M ED 21:08 → M ED INP 21:09 → M MS5PR 04-23 04:15 → OBSVTOIN 04-24 13:53
PROVIDERS: ADMIT Internal Medicine; ATTEND Internal Medicine Nephrology
PROC: 0S9D3ZX Drainage of Left Knee Joint, Percutaneous Approach, Diagnostic (ICD-10-PCS; 2019-04-24)
PROC: 3E0U329 Introduction of Other Anti-infective into Joints, Percutaneous Approach (ICD-10-PCS; 2019-04-26)
PROC: 0S9D30Z Drainage of Left Knee Joint with Drainage Device, Percutaneous Approach (ICD-10-PCS; principal; 2019-04-26 16:00)
DX: M25.062 Hemarthrosis, left knee (principal); D68.32 Hemorrhagic disorder due to extrinsic circulating anticoagulants; M25.462 Effusion, left knee; M71.22 Synovial cyst of popliteal space [Baker], left knee; G43.909 Migraine, unspecified, not intractable, without status migrainosus; K22.70 Barrett's esophagus without dysplasia; I10 Essential (primary) hypertension; K21.9 Gastro-esophageal reflux disease without esophagitis; M25.562 Pain in left knee; Z86.711 Personal history of pulmonary embolism; Z87.442 Personal history of urinary calculi; Z79.01 Long term (current) use of anticoagulants; Z79.899 Other long term (current) drug therapy; Z79.891 Long term (current) use of opiate analgesic; Z88.2 Allergy status to sulfonamides; Z90.5 Acquired absence of kidney; K59.00 Constipation, unspecified

== ENCOUNTER → 2019-06-12 | Outpatient (CLI) | payer OTHER ==
[~2019-06-12] MED LIST changes: +ESOM1CAP5 PO; +GABA-1171 PO; +MORP15TA2 PO; +ONDA4TAB5 PO; +PEG1POW PO; +PERC5TAB12 PO; +REQU1TAB14 PO; +SENN-52 PO; +WARF-23 PO; +WARF4TAB52 PO; +[UNRECOGNIZED DRUG - CODE] PO
--- NOTE | 2019-06-12 11:43 | REP ---
Clinical: Left lower extremity postsurgical pain and swelling . Technique: [place] scale and color Doppler evaluation using linear high frequency transducer. Findings: Ultrasound examination of the left lower extremity deep venous structures from the common femoral vein to the popliteal vein demonstrates normal compressibility flow and wave patterns in response to respiration and augmentation. There is no evidence for deep venous thrombosis. Impression: No evidence for deep venous thrombosis. Electronically Signed by Speedy Melgoza MD 06/12/2019 11:34 A
== END ==
LOC: M RAD 10:33
PROVIDERS: ATTEND Physician Assistant Surgical
DX: Z47.89 Encounter for other orthopedic aftercare (principal)

== ENCOUNTER → 2019-06-23 | Outpatient (REF) | payer OTHER ==
[~2019-06-23] MED LIST changes: +ONDA-83 PO; -ONDA4TAB5 PO
[2019-06-23 14:51] LABS: BASO # 0.1 10^3/uL (0.0-0.2); BASO % 1.3 % (0.0-1.0); EOS # 0.1 10^3/uL (0.0-0.5); EOS % 2.7 % (0.0-3.0); HEMOGLOBIN 12.9 g/dl (12.0-15.5); LYMPH # 1.4 10^3/uL (1.5-5.0); MEAN CORPUSCULAR HEMOGLOBIN 29.3 pg (27.0-33.0); MEAN CORPUSCULAR HGB CONC 30.7 g/dl (32.0-36.5); MEAN CORPUSCULAR VOLUME 95.5 fl (80.0-96.0); MONO # 0.5 10^3/uL (0.0-0.8); MONO % 9.4 % (0.0-5.0); NEUTROPHILS # 2.8 10^3/uL (1.5-8.5); NEUTROPHILS % 57.2 % (36.0-66.0); PLATELET COUNT, AUTOMATED 297 10^3/uL (150-450); WHITE BLOOD COUNT 4.8 10^3/uL (4.0-10.0)
[2019-06-23 15:14] LABS: ERYTHROCYTE SEDIMENTATION RATE 24 mm/hr (0-30)
== END ==
LOC: M LABDRAW1 13:54
PROVIDERS: ATTEND Orthopaedic Surgery
DX: Z47.89 Encounter for other orthopedic aftercare (principal)

== ENCOUNTER → 2019-07-08 | Outpatient (CLI) | payer OTHER ==
--- NOTE | 2019-07-09 08:04 | REP ---
MRI LEFT KNEE: TECHNIQUE: Axial proton density fat saturation, sagittal proton density T2 STIR, water excitation, coronal proton density, proton density fat saturation. Menisci appear intact with no evidence of a tear. The cruciate and collateral ligaments are intact. The extensor mechanism is intact. The medial and lateral patellar retinacula are intact. Patellar cartilage demonstrates moderately severe chondromalacia particularly centrally with mild subchondral marrow edema. There is moderate diffuse chondromalacia of the femoral condyles and tibial plateaus. There are scattered nonspecific marrow edema in the femoral condyles. There is a normal amount of joint fluid. No popliteal cyst is seen. Incidental note is made of subcutaneous venous varicosities, predominantly laterally. IMPRESSION: No evidence of internal derangement. No meniscal tear. No abnormality of cruciate or collateral ligaments. 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 There is mild subchondral marrow edema centrally of the patella. There is nonspecific marrow edema of the femoral condyles. Electronically Signed by Marco A [place] MD 07/09/2019 10:42 P
== END ==
LOC: M RAD 07:20
PROVIDERS: ATTEND Orthopaedic Surgery
DX: Z47.89 Encounter for other orthopedic aftercare (principal); M22.42 Chondromalacia patellae, left knee; R60.0 Localized edema

== ENCOUNTER → 2019-11-21 | Outpatient (CLI) | payer OTHER ==
[2019-11-21 13:06] LABS: INR 1.97; PROTHROMBIN TIME 22.2 SECONDS (11.8-14.0)
== END ==
LOC: M LAB 12:26
PROVIDERS: ATTEND Internal Medicine Hematology & Oncology
DX: Z79.01 Long term (current) use of anticoagulants (principal)